=== PATIENT | male | born 1990 | race Caucasian/White ===

== ENCOUNTER 2020-01-31 22:22 | Emergency (ER) | payer OTHER ==
[~2020-01-31] VITALS: Ht 175.3 cm; Wt 88.5 kg
[2020-01-31] MEDS ORDERED: HYDRALAZINE HCL50 MG PO (22:28)
--- OUTSIDE RECORDS SUMMARY | 2020-01-31 23:42 | XMS ---
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 Geremias VISIT COUNT (12 MO.) 1 [facility] [address] [place] [address] ADA [place] Karely TOTAL 9 NOTE: Visits indicate total known visits. ED/UCC VISIT TRACKING (12 MO.) 01/31/2020 22:23 [facility] [place] TYPE: Emergency COMPLAINT: - CHEST TINGLING 01/30/2020 16:57 [facility] [place] TYPE: Emergency DIAGNOSES: . ANXIETY / PANIC ATTACK . Anxiety disorder, unspecified 01/18/2020 10:22 [facility] [place] TYPE: Emergency DIAGNOSES: . anxiety . Chest pain, unspecified 01/17/2020 01:03 [facility] [place] TYPE: Emergency DIAGNOSES: 07807. anxiety 01/09/2020 23:05 [facility] [place] TYPE: Emergency DIAGNOSES: 69913. ermiaseck anxiety 12566. Adjustment disorder, unspecified 80332. Anxiety disorder, unspecified 01/09/2020 01:49 [facility] [place] TYPE: Emergency DIAGNOSES: 59606. ANXIETY 88853. Anxiety disorder, unspecified 01/08/2020 12:[address] [facility] [place] [facility]NN [place] TYPE: Emergency DIAGNOSES: - Panic disorder [episodic paroxysmal anxiety] - Anxiety - Panic Attack 01/03/2020 23:12 [facility] [place] TYPE: Emergency DIAGNOSES: 58375. chaz, damir [address]. Panic disorder [episodic paroxysmal anxiety] 12/25/2019 17:10 [facility] [place] TYPE: Emergency DIAGNOSES: [address]. [place] [address]. Chest pain, unspecified INPATIENT VISIT TRACKING (12 MO.) No inpatient visits to display in this time frame [email or web address]
--- NOTE | 2020-02-01 16:36 | EKG ---
[facility] [address] [place], [place] [address] Signed Normal sinus rhythm Normal ECG No previous ECGs available Confirmed by DIANDRA RODRIGUEZ DO ([id number]) on 02/01/2020 4:36:29 PM Electronically Signed By: DIANDRA RODRIGUEZ DO 02/01/20 1636 PATIENT NAME: JONH YOO Electrocardiogram DATE OF : 88 PHYSICIAN: DIANDRA RODRIGUEZ DO REPORT #: [id number] REPORT IS CONFIDENTIAL AND NOT TO BE RELEASED WITHOUT AUTHORIZATION
== END 2020-01-31 23:27 | disposition home or self-care (01) ==
LOC: ED 22:22
DX: K21.9 Gastro-esophageal reflux disease without esophagitis (principal); R07.89 Other chest pain; F17.200 Nicotine dependence, unspecified, uncomplicated
CPT/HCPCS: 93005; 93010; 99284-25

== ENCOUNTER 2020-02-03 10:01 | Emergency (ER) | payer MEDICAID ==
[~2020-02-03] VITALS: Ht 175.3 cm; Wt 88.5 kg
--- OUTSIDE RECORDS SUMMARY | ~2020-02-03 | XMS | Encounter Summary ---
Demographics + + + | Address | [address] | | | [place] [address] | + + + | Home Phone | | + + + | Preferred Language | Unknown | + + + | Marital Status | Single | + + + | Anabaptism Affiliation | NRP | + + + | Race | White | + + + | Ethnic Group | Not or | + + + Author + + + | Author | [facility] | + + + | Organization | [facility] | + + + | Address | Unknown | + + + | Phone | Unavailable | + + + Support + + +---------+ + | Name | Relationship | Address | Phone | + + +---------+ + | Tahira Lan | ECON | Unknown | | + + +---------+ + Care Team Providers + +------+ + | Care Chalk Cutter Name | Role | Phone | + +------+ + | No Pcp Per Patient | PCP | Unavailable | + +------+ + Encounter Details +--------+ + + + + | Date | Type | Department | Care Team | Description | +--------+ + + + + | 01/16/ | Emergency | [facility] | | | | 2020 | | Medicine [address] | | | | | | [place], [place] | | | | | | [address] | | | +--------+ + + + + Social History + +-------+ +--------+------+ | Tobacco Use | Types | Packs/Day | Years | Date | | | | | Used | | + +-------+ +--------+------+ | Current Every Day | | | | | | Smoker | | | | | + +-------+ +--------+------+ + +---+---+---+ | Smokeless Tobacco: | | | | | Never Used | | | | + +---+---+---+ + + +---------+ + | Alcohol Use | Drinks/Week | oz/Week | Comments | + + +---------+ + | Never | | | | + + +---------+ + + + + + | Alcohol Habits | Answer | Date Recorded | + + + + | How often do you have a drink containing | Never | 12/25/2019 | | alcohol? | | | + + + + | How many drinks containing alcohol do you | Not asked | | | have on a typical day when you are | | | | drinking? | | | + + + + | How often do you have six or more drinks on | Not asked | | | one occasion? | | | + + + + + + + | Sex Assigned at | Date Recorded | | | | + + + | Not on file | | + + + + + + + | Job Start Date | Occupation | Industry | + + + + | Not on file | Not on file | Not on file | + + + + + + + + | Travel History | Travel Start | Travel End | + + + + + + | No recent travel history available. | + + + + + + | COVID-19 Exposure | Response | Date Recorded | + + + + | In the last month, have you been in contact | No / Unsure | 01/17/2020 1:04 AM | | with someone who was confirmed or | | PDT | | suspected to have Coronavirus / COVID-19? | | | + + + + documented as of this encounter Medications at Time of Discharge + + + +---------+ + + | Medication | Sig | Dispensed | Refills | Start | End Date | | | | | | Date | | + + + +---------+ + + | hydrOXYzine 50 mg | Take 1 tablet by | 16 | 0 | 01/09/20 | | | oral tablet | mouth every six | tablet | | 20 | | | | hours as needed for | | | | | | | anxiety. | | | | | + + + +---------+ + + documented as of this encounter Plan of Treatment Not on filedocumented as of this encounter Procedures + +--------+ + + + | Procedure Name | Priori | Date/Time | Associated Diagnosis | Comments | | | ty | | | | + +--------+ + + + | ED INFORMATION | Routin | 01/17/2020 | | Results for this | | EXCHANGE | e | 1:04 AM | | procedure are in the | | | | PDT | | results section. | + +--------+ + + + documented in this encounter Results ED INFORMATION EXCHANGE (01/17/2020 1:04 AM PDT) + + | Specimen | + + | | + + + + + | Narrative | Performed At | + + + | [facility]?NOTIFICATION?01/17/2020 01:03?JONH VAZQUEZ? | [facility] | | Criteria Met 5 Visits In 365 Days Security and Safety | MEDICAL | | No recent Security Events currently on file ED Care Guidelines | TECHNOLOGIES | | There are currently no ED Care Guidelines for this patient. Please | | | check your facility's medical records system. E.D. | | | Visit Count (12 mo.) Facility Visits [facility] | | | Center 1 [facility] 5 Total 6 Note: Visits | | | indicate total known visits. Recent Emergency Department Visit | | | Summary Date Facility [facility] State Type Diagnoses or Chief Complaint | | | Jan 17, 2020 [facility]. [place] Emergency 10,800. | | | anxiety Jan 09, 2020 [facility]. [place] Emergency | | | 10,800. recheck anxiety 18,400. Adjustment disorder, | | | unspecified 18,400. Anxiety disorder, unspecified Jan 08, | | | 2019 [facility]. [place] Emergency 10,800. ANXIETY | | | 18,400. Anxiety disorder, unspecified Jan 08, 2020 [place] | | | [facility]. [place] Emergency Anxiety Panic | | | Attack Panic disorder [episodic paroxysmal anxiety] Jan 02, | | | 2019 [facility]. [place] Emergency 10,800. anxiety, | | | sob 18,400. Panic disorder [episodic paroxysmal anxiety] | | | Dec 25, 2019 [facility]. [place] Emergency 10,800. | | | CP 18,400. Chest pain, unspecified Recent Inpatient | | | Visit Summary No recorded inpatient visits. Care Team Provider | | | Specialty Phone Fax Service Dates [facility] | [facility] Clinic/Center: [facility] ([facility]) ([id number]) | | | [phone] Dec 24, 2019 - Current Tiqets Portal This | | | patient has registered at the [facility] Emergency | | | Department For more information visit: | | | [email or web address] | | | [email or web address] PLEASE NOTE: 1. Any care recommendations and | | | other clinical information are provided as guidelines or for | | | historical purposes only, and providers should exercise their own | | | clinical judgment when providing care. 2. You may only use this | | | information for purposes of treatment, payment or health care | | | operations activities, and subject to the limitations of applicable | | | Collective Policies. 3. You should consult directly with the | | | organization that provided a care guideline or other clinical | | | history with any questions about additional information or accuracy | | | or completeness of information provided. ? 2020 [email or web address] | | | [employer] Dash. - [email or web address] | | + + + + + | Procedure Note | + + | Service Account, Rtf Results Inbound - 01/17/2020 1:06 AM PDT Formatting of this | | note might be different from the original.COLLECT[facility]?NOTIFICATION?01/17/2020 | | 01:03?JONH VAZQUEZ? Met 5 Visits In 365 DaysSecurity and SafetyNo | | recent Security Events currently on fileED Care GuidelinesThere are currently no ED Care | | Guidelines for this patient. Please check your facility's medical records system.E.D. | | Visit Count (12 mo.)Facility Visits [facility] 1 [facility] | | [facility] 5 Total 6 Note: Visits indicate total known visits. Recent Emergency | | Department Visit SummaryDate Facility City State Type Diagnoses or Chief Complaint Srini | | 2019 [facility]. [place] Emergency 10,800. anxiety Jan 09, 2020 | | [facility]. [place] Emergency 10,800. recheck anxiety 18,400. | | Adjustment disorder, unspecified 18,400. Anxiety disorder, unspecified Jan 09, 2020 | | [facility]. [place]. [place] Emergency 10,800. ANXIETY 18,400. Anxiety disorder, | | unspecified Jan 08, 2020 [facility]. [place] Emergency Anxiety | | Panic Attack Panic disorder [episodic paroxysmal anxiety] Jan 03, 2020 [facility] | | [facility]. [place]. [place] Emergency 10,800. anxiety, sob 18,400. Panic disorder | | [episodic paroxysmal anxiety] Dec 25, 2019 [facility]. [place] Emergency | | 10,800. CP 18,400. Chest pain, unspecified Recent Inpatient Visit SummaryNo recorded | | inpatient visits. Care TeamProvider Specialty Phone Fax Service Dates [place], | | [facility] Clinic/Center: [facility] ([facility]) | | Dec 24, 2019 - Current Tiqets PortalThis patient has registered at | | the [facility] Emergency Department For more information visit: | | [email or web address] PLEASE | | NOTE: 1. Any care recommendations and other clinical information are provided as | | guidelines or for historical purposes only, and providers should exercise their own | | clinical judgment when providing care. 2. You may only use this information for | | purposes of treatment, payment or health care operations activities, and subject to the | | limitations of applicable Tiqets Policies. 3. You should consult directly with | | the organization that provided a care guideline or other clinical history with any | | questions about additional information or accuracy or completeness of information | | provided.? 2020 [employer]. - [email or web address] | | 10,800. recheck anxiety | | 18,400. Adjustment disorder, unspecified | | 18,400. Anxiety disorder, unspecified | | | |Jan 09, 2020 [facility]. [place] Emergency | | 10,800. ANXIETY | | 18,400. Anxiety disorder, unspecified | | | |Jan 08, 2020 [facility]. [place] Emergency | | Anxiety | | Panic Attack | | Panic disorder [episodic paroxysmal anxiety] | | | |Jan 03, 2020 [facility]. [place] Emergency | | 10,800. anxiety, sob | | 18,400. Panic disorder [episodic paroxysmal anxiety] | | | |Dec 25, 2019 [facility]. [place] Emergency | | 10,800. CP | | 18,400. Chest pain, unspecified | | | | | | | |Recent Inpatient Visit Summary | |No recorded inpatient visits. | | | |Care Team | |Provider Specialty Phone Fax Service Dates | |[facility] Clinic/Center: [facility] ( [facility]) Dec 24, 2019 - Current | | | |Tiqets Portal | |This patient has registered at the [facility] Emergency Department | |For more information visit: [email or web address] | |PLEASE NOTE: | | 1. Any care recommendations and other clinical information are provided as guidelines or for historical purposes only, and providers should exercise their own clinical judgment whe n providing care. | | 2. You may only use this information for purposes of treatment, payment or health care o perations activities, and subject to the limitations of applicable Tiqets Policies. | | 3. You should consult directly with the organization that provided a care guideline or o ther clinical history with any questions about additional information or accuracy or complet eness of information provided. | | | |? 2020 [employer] Party. - [email or web address] | + + + + + + + | Performing | Address | City/State/Zipcode | Phone Number | | Organization | | | | + + + + + | [facility] | [address] | [place], [place] | [phone] | | TECHNOLOGIES | [address] | [address] | | + + + + + documented in this encounter Visit Diagnoses Not on filedocumented in this encounter"
--- OUTSIDE RECORDS SUMMARY | ~2020-02-03 | XMS | Encounter Summary ---
Demographics + + + | Address | [address] | | | [place] [address] | + + + | Home Phone | | + + + | Preferred Language | Unknown | + + + | Marital Status | Single | + + + | Pentecostalism Affiliation | NRP | + + + | Race | White | + + + | Ethnic Group | Not or | + + + Author + + + | Organization | Unknown | + + + | Address | Unknown | + + + | Phone | Unavailable | + + + Support + + +---------+ + | Name | Relationship | Address | Phone | + + +---------+ + | Tahira Lan | ECON | Unknown | | + + +---------+ + Care Team Providers + +------+ + | Care Denier Control Operator Name | Role | Phone | + +------+ + | No Pcp Per Patient | PCP | Unavailable | + +------+ + Encounter Details +--------+--------+ + + + | Date | Type | Department | Care Team | Description | +--------+--------+ + + + | 01/17/ | Travel | | | | | 2020 | | | | | +--------+--------+ + + + Social History + +-------+ [...] in contact | No / Unsure | 01/18/2020 10:04 AM | | with someone who was confirmed or | | PDT | | suspected to have Coronavirus / COVID-19? | | | + + + + documented as of this encounter Plan of Treatment Not on filedocumented as of this encounter Visit Diagnoses Not on filedocumented in this encounter"
--- OUTSIDE RECORDS SUMMARY | ~2020-02-03 | XMS | Encounter Summary ---
Demographics + + + | Address | [address] | | | [place] [address] | + + + | Home Phone | | + + + | Preferred Language | Unknown | + + + | Marital Status | Single | + + + | Muslim Affiliation | NRP | + + + [...] Team Providers + +------+ + | Care Tour Conductor Name | Role | Phone | + +------+ + | No Pcp Per Patient | PCP | Unavailable | + +------+ + Reason for Visit +---------+ + | Reason | Comments | +---------+ + | Anxiety | | +---------+ + AUTH/CERT +--------+--------+ + + + + | Status | Reason | Specialty | Diagnoses / | Referred By | Referred To | | | | | Procedures | Contact | Contact | +--------+--------+ + + + + | | | | | | | +--------+--------+ + + + + Encounter Details +--------+ + + + + | Date | Type | Department | Care Team | Description | +--------+ + + + + | 01/08/ | Emergency | [facility] | Chema Beck, | | | 2019 - | | Medicine [address] | DO [address] [facility] | | | | | [place], [place] | [facility] | | | 01/09/ | | [address] | [place], [place] | | | 2019 | | | [address] | | | | | | [phone] | | | | | | | | +--------+ + + + [...] in contact | No / Unsure | 01/09/2020 11:14 PM | | with someone who was confirmed or | | PDT | | suspected to have Coronavirus / COVID-19? | | | + + + + documented as of this encounter Last Filed Vital Signs + + + + + | Vital Sign | Reading | Time Taken | Comments | + + + + + | Blood Pressure | 126/64 | 01/10/2020 12:00 AM | | | | | PDT | | + + + + + | Pulse | 79 | 01/09/2020 11:13 PM | | | | | PDT | | + + + + + | Temperature | 36.9 C (98.4 F) | 01/09/2020 11:13 PM | | | | | PDT | | + + + + + | Respiratory Rate | 18 | 01/09/2020 11:13 PM | | | | | PDT | | + + + + + | Oxygen Saturation | 97% | 01/10/2020 12:01 AM | | | | | PDT | | + + + + + | Inhaled Oxygen | - | - | | | Concentration | | | | + + + + + | Weight | 88.5 kg (195 lb) | 01/09/2020 11:13 PM | | | | | PDT | | + + + + + | Height | 175.3 cm (5' 9") | 01/09/2020 11:13 PM | | | | | PDT | | + + + + + | Body Mass Index | 28.8 | 01/09/2020 11:13 PM | | | | | PDT | | + + + + + documented in this encounter Discharge Instructions Instructions Chema Beck DO - 01/10/2020Outpatient Behavioral [facility] Patient Safety Plan Step 1: Warning signs (thoughts, images, mood, situation, behavior) that a crisis may be de velopin. Moments of vulnerability such as eating and sleeping 2. Feeling out of breath 3. Heart racing 4. Heavy head 5. Dry mouth Step 2: Internal coping strategiesThings I can do to take my mind off my problems without c ontacting another person (relaxation technique, physical activity): 1. Grounding techniques (handout provided by [facility]) 2. Attending to nervous system worksheet (provided by [facility]) 3. Leaving the house and going for a ride in the car Step 3: People and social settings that provide distraction: 1. Name: Friends Phone: in phone 2. Name: Friends Phone: in phone 3. Place: Driving in car 4: Place: Step 4: People whom I can ask for help: 1. Name: Friends Phone: in phone 2. Name: Friends Phone: in phone 3. Name: Friends Phone: in phone Step 5: Professional or agencies I can contact during a crisis: 1. Clinical Name: Natalie Bragg in [place] 2. Local Urgent Care Services: Natalie Bragg in [facility] Address: [address] [address] Urgent Care Services 3. Suicide Prevention Lifeline Phone: [phone] ([phone]) Crisis Resources: [facility] Crisis Line: 24/01, Call: [phone] [place] [facility] [address] [address] This is a crisis center and should you be in a mental health crisis or need immediate suppo rt. To access, please call the crisis line at [phone] or go to the [place] [facility] between the hours of 9:00am to 8:30 pm. The Crisis Text Line - Text HOME to 322842 A labor relations worker will text you back and continue to text you. This is a free service. National Suicide Prevention Lifeline: 144.987.2144 [place]: 400.629.8201 Alcohol and Drug Helpline: 556.601.4342 Domestic Violence Resource Center: 493.374.8554 Veterans Crisis Line: 589.272.4635 Press 1 Text: 068692 Problem Gambling Helpline: 575.290.5127 [place] Poison Control Hotline: 144.471.5564 Step 6: Making the environment safe: 1. Taking space from family 2. Keeping schedule The one thing that is most important to me and worth living for is: Family AttachmentsThe following attachments cannot be sent through Care Everywhere.Adjustment Diso rder (Somali)documented in this encounter Medications at Time of Discharge [...] + | ED INFORMATION | Routin | 01/09/2020 | | Results for this | | EXCHANGE | e | 11:00 PM | | procedure are in the | | | | PDT | | results section. | + +--------+ + + + documented in this encounter Results ED INFORMATION EXCHANGE (01/09/2020 11:00 PM PDT) + + | Specimen | + + | | + + + + + | Narrative | Performed At | + + + | [facility]?NOTIFICATION?01/09/2020 22:59?JONH VAZQUEZ? | [facility] | | Criteria Met 5 Visits In 365 Days COVID-19 Pending Lab | MEDICAL | | Results Security and Safety No recent Security Events currently | TECH[employer]OLOGIES | | on file ED Care Guidelines There are currently no ED Care | | | Guidelines for this patient. Please check your facility's medical | | | records system. Flags Pending COVID-19 Lab Result - | | | [place] - A specimen was collected from this patient for | | | COVID-19, results pending / Attributed By: Linda_ / Attributed | | | On: 01/08/2020 E.D. Visit Count (12 mo.) Facility | | | Visits [facility] 1 [facility] | | | [facility] 4 Total 5 Note: Visits indicate total known visits. | | | Recent Emergency Department Visit Summary Date Facility City State | | | Type Diagnoses or Chief Complaint Jan 09, 2020 [facility]. | | | [place]. [place] Emergency 10,800. recheck anxiety Jan 09, 2020 | | | [facility]. [place] Emergency 10,800. ANXIETY | | | 18,400. Anxiety disorder, unspecified Jan 08, 2020 [facility] | | | [place] Emergency Anxiety Panic Attack | | | Panic disorder [episodic paroxysmal anxiety] Jan 03, 2020 | | | [facility]. [place] Emergency 10,800. anxiety, sob | | | 18,400. Panic disorder [episodic paroxysmal anxiety] Dec 24, | | | 2019 [facility]. [place] Emergency 10,800. CP | | | 18,400. Chest pain, unspecified Recent Inpatient Visit | | | Summary No recorded inpatient visits. Care Team Provider | | | Specialty Phone Fax Service Dates [facility] | | CL[facility] Clinic/Center: [facility] ([facility]) ([phone]) | | | [phone] Dec 24, 2019 - Current [employer] Portal This | | | patient has registered at the [facility] Emergency | | | Department For more information visit: | | | [email or web address] | | | [email or web address] PLEASE NOTE: 1. Any care recommendations and [...] or completeness of information provided. ? 2020 [employer] | | | [employer] - www.[employer] | | + + + + + | Procedure Note | + + | Service Account, Rtf Results Inbound - 01/09/2020 11:02 PM PDT Formatting of this | | note might be different from the original.COLLECTIVE?NOTIFICATION?01/09/2020 | | 22:59?JONH VAZQUEZ? Met 5 Visits In 365 Days COVID-19 Pending Lab | | ResultsSecurity and SafetyNo recent Security Events currently on fileED Care | | GuidelinesThere are currently no ED Care Guidelines for this patient. Please check your | | facility's medical records system.Flags Pending COVID-19 Lab Result - [place] - A | | specimen was collected from this patient for COVID-19, results pending / Attributed By: | | [place]_ / Attributed On: 01/08/2020 E.D. Visit Count (12 mo.)Facility Visits | | [facility] 1 [facility] 4 Total 5 Note: | | Visits indicate total known visits. Recent Emergency Department Visit SummaryDate | | Facility City State Type Diagnoses or Chief Complaint Jan 09, 2020 [facility]. | | [place]. [place] Emergency 10,800. recheck anxiety Jan 09, 2020 [facility]. | | [place] Emergency 10,800. ANXIETY 18,400. Anxiety disorder, unspecified Jan 08, 2020 | | [facility]. [place] Emergency Anxiety Panic Attack Panic | | disorder [episodic paroxysmal anxiety] Jan 03, 2020 [facility]. [place] | | Emergency 10,800. anxiety, sob 18,400. Panic disorder [episodic paroxysmal | | anxiety] Dec 25, 2019 [facility]. [place] Emergency 10,800. CP 18,400. | | Chest pain, unspecified Recent Inpatient Visit SummaryNo recorded inpatient visits. | | Care TeamProvider Specialty Phone Fax Service Dates [facility] Clinic[facility]Center: [facility] ([facility]) Dec 23 | | 2019 - Current APERA BAGSThis patient has registered at the [facility] | | Hospital Emergency Department For more information visit: | | [email or web address] PLEASE | | NOTE: 1. Any care [...] to the | | limitations of applicable [employer] Policies. 3. You should consult directly with | | the organization that provided a care guideline or other clinical history with any | | questions about additional information or accuracy or completeness of information | | provided.? 2019 [employer]. - www.[employer] | | 10,800. recheck anxiety | | | |Jan 09, 2020 [facility]. [place] Emergency | | 10,800. ANXIETY | | 18,400. Anxiety disorder, unspecified | | | |Jan 08, 2020 [facility]. [place] Emergency | | Anxiety | | Panic Attack | | Panic disorder [episodic paroxysmal anxiety] | | | |Jan 03, 2020 [facility]. [place] Emergency | | 10,800. anxiety, sob | | 18,400. Panic disorder [episodic paroxysmal anxiety] | | | |Dec 25, 2019 [facility]. [place] Emergency | | 10,800. CP | | 18,400. Chest pain, unspecified | | | | | | | |Recent Inpatient Visit Summary | |No recorded inpatient visits. | | | |Care Team | |Provider Specialty Phone Fax Service Dates | |[facility] Clinic[facility]Center: [facility] ( [facility]) Dec 24, 2019 - Current | | | |[employer] Portal | |This patient has registered at the [facility] Emergency Department | |For more information visit: [email or web address] | |PLEASE NOTE: | | 1. Any care recommendations and other clinical information are provided as guidelines or for historical purposes only, and providers should exercise their own clinical judgment whe n providing care. | | 2. You may only use this information for purposes of treatment, payment or health care o perations activities, and subject to the limitations of applicable [employer] Polic[employer]. | | 3. You should consult directly with the organization that provided a care guideline or o ther clinical history with any questions about additional information or accuracy or complet eness of information provided. | | | |? 2020 [employer]. - www.[employer] | + + + + + + + | Performing | Address | City/State/Zipcode | Phone Number | | Organization | | | | + + + + + | [facility] | [address] | [place], [place] | [phone] | | TECH[employer]OLOGIES | [address] | [address] | | + + + + + documented in this encounter Visit Diagnoses + + | Diagnosis | + + | Adjustment disorder, unspecified type - Primary | + + | Anxiety Anxiety state, unspecified | + + documented in this encounter
--- OUTSIDE RECORDS SUMMARY | ~2020-02-03 | XMS | Encounter Summary ---
Demographics + + + | Address | [address] | | | [place] [address] | + + + | Home Phone | | + + + | Preferred Language | Unknown | + + + | Marital Status | Single | + + + | Church Affiliation | NRP | + + + [...] Team Providers + +------+ + | Care Clerk Operator Name | Role | Phone | [...] [address] | | | | | | [place], [place] | | | | | | [address] | | | +--------+ + + + [...] | Visit Count (12 mo.) Facility Visits [facility] | | | Center 1 [facility] 5 Total 6 Note: Visits | | | indicate total known visits. Recent Emergency Department Visit | | | Summary Date Facility [facility] State Type Diagnoses or Chief Complaint | | | Jan 17, 2020 [facility]. [place] Emergency 10,800. | | | anxiety Jan 09, 2020 [facility]. [place] Emergency | | | 10,800. recheck anxiety 18,400. Adjustment disorder, | | | unspecified 18,400. Anxiety disorder, unspecified Jan 08, | | | 2019 [facility]. [place] Emergency 10,800. ANXIETY | | | 18,400. Anxiety disorder, unspecified Jan 08, 2020 [place] | | | [facility]. [place] Emergency Anxiety Panic | | | Attack Panic disorder [episodic paroxysmal anxiety] Jan 02, | | | 2019 [facility]. [place] Emergency 10,800. anxiety, | | | sob 18,400. Panic disorder [episodic paroxysmal anxiety] | | | Dec 25, 2019 [facility]. [place] Emergency 10,800. | | | CP 18,400. Chest pain, unspecified Recent Inpatient | | | Visit Summary No recorded inpatient visits. Care Team Provider | | | Specialty Phone Fax Service Dates [facility] | | [facility] Clinic/Center: [facility] ([facility]) (630) | | | [phone] Dec 24, 2019 - Current [employer] Portal This | | | patient has registered at the [facility] Emergency | | | Department For more information visit: | | | [email or web address] | | | [email or web address] 2 PLEASE NOTE: 1. Any care recommendations [...] or completeness of information provided. ? 2020 [employer] | | | [employer]. - www.[employer] | | + + + + + [...] | | Visit Count (12 mo.)Facility Visits [facility] 1 [facility] | | [facility] 5 Total 6 Note: Visits indicate total known visits. Recent Emergency | | Department Visit SummaryDate Facility City State Type Diagnoses or Chief Complaint Srini | | 2019 [facility]. [place]. [place] Emergency 10,800. anxiety Jan 09, 2020 | | [facility]. [place] Emergency 10,800. recheck anxiety 18,400. | | Adjustment disorder, unspecified 18,400. Anxiety disorder, unspecified Jan 09, 2020 | | [facility]. [place]. [place] Emergency 10,800. ANXIETY 18,400. Anxiety disorder, | | unspecified Jan 08, 2020 [facility]. [place] Emergency Anxiety | | Panic Attack Panic disorder [episodic paroxysmal anxiety] Jan 03, 2020 [facility] | | [facility]. [place]. [place] Emergency 10,800. anxiety, sob 18,400. Panic disorder | | [episodic paroxysmal anxiety] Dec 25, 2019 [facility]. [place] Emergency | | 10,800. CP 18,400. Chest pain, unspecified Recent Inpatient Visit SummaryNo recorded | | inpatient visits. Care TeamProvider Specialty Phone Fax Service Dates [place], | | [facility] Clinic/Center: [facility] ([facility]) | | Dec 24, 2019 - Current [employer] PortalThis patient has registered at | | the [facility] Emergency Department For more information visit: | | [email or web address] PLEASE | | NOTE: 1. Any care [...] to the | | limitations of applicable [employer] Policies. 3. You should consult directly with | | the organization that provided a care guideline or other clinical history with any | | questions about additional information or accuracy or completeness of information | | provided.? 2020 [employer]. - www.[email or web address] | | 10,800. recheck anxiety | | 18,400. Adjustment disorder, unspecified | | 18,400. Anxiety disorder, unspecified | | | |Jan 09, 2020 [facility]. [place] Emergency | | 10,800. ANXIETY | | 18,400. Anxiety disorder, unspecified | | | |Jan 08, 2020 [facility]. [place] Emergency | | Anxiety | | Panic Attack | | Panic disorder [episodic paroxysmal anxiety] | | | |Jan 03, 2020 [facility]. [place] Emergency | | 10,800. anxiety, sob | | 18,400. Panic disorder [episodic paroxysmal anxiety] | | | |Dec 25, 2019 [facility]. [place] Emergency | | 10,800. CP | | 18,400. Chest pain, unspecified | | | | | | | |Recent Inpatient Visit Summary | |No recorded inpatient visits. | | | |Care Team | |Provider Specialty Phone Fax Service Dates | |[facility] Clinic/Center: [facility] ( [facility]) Dec 24, 2019 - Current | | | |[employer] Portal | |This patient has registered at the [facility] Emergency Department | |For more information visit: [email or web address] | |PLEASE NOTE: | | 1. Any care recommendations and other clinical information are provided as guidelines or for historical purposes only, and providers should exercise their own clinical judgment whe n providing care. | | 2. You may only use this information for purposes of treatment, payment or health care o perations activities, and subject to the limitations of applicable [employer] Policies. | | 3. You should consult directly with the organization that provided a care guideline or o ther clinical history with any questions about additional information or accuracy or complet eness of information provided. | | | |? 2020 [employer]. - www.[email or web address] | + + + + + + + | Performing | Address | City/State/Zipcode | Phone Number | | Organization | | | | + + + + + | [facility] | [address] | [place], [place] | [phone] | | TE[employer] | [address] | [address] | | + + + + + documented in this encounter Visit Diagnoses Not on filedocumented in this encounter"
--- OUTSIDE RECORDS SUMMARY | ~2020-02-03 | XMS | Encounter Summary ---
Demographics + + + | Address | [address] | | | [place] [address] | + + + | Home Phone | | + + + | Preferred Language | Unknown | + + + | Marital Status | Single | + + + | Catholic Affiliation | NRP | + + + [...] Team Providers + +------+ + | Care Teachers' Assistant Name | Role | Phone | + [...] | Chema Beck, | | | 2019 | | Medicine [address] | DO [address] | | | | | [place], [place] | [facility] | | | | | [id number] | [place], [place] | | | | | | [address] | | | | | | [phone] | | | | | | | [...] contact | No / Unsure | 01/09/2020 12:41 AM | | with someone who was confirmed or | | PDT | | suspected to have Coronavirus / COVID-19? | | | + + + + documented as of this encounter Last Filed Vital Signs + + + + + | Vital Sign | Reading | Time Taken | Comments | + + + + + | Blood Pressure | 108/65 | 01/09/2020 3:20 AM | | | | | PDT | | + + + + + | Pulse | 66 | 01/09/2020 12:52 AM | | | | | PDT | | + + + + + | Temperature | 37.2 C (99 F) | 01/09/2020 12:52 AM | | | | | PDT | | + + + + + | Respiratory Rate | 18 | 01/09/2020 3:20 AM | | | | | PDT | | + + + + + | Oxygen Saturation | 98% | 01/09/2020 3:20 AM | | | | | PDT | | + + + + + | Inhaled Oxygen | - | - | | | Concentration | | | | + + + + + | Weight | 88.5 kg (195 lb) | 01/09/2020 12:52 AM | | | | | PDT | | + + + + + | Height | - | - | | + + + + + | Body Mass Index | 28.8 | 01/03/2020 10:58 PM | | | | | PDT | | + + + + + documented in this encounter Discharge Instructions Instructions Chema Beck DO - 01/09/2020[facility] Health Follow up Appointment: Tuesday, Tuesday, or Tuesday at 1100 (follow up within 7 days) [place] [address] [place], [place] [address] [facility] Crisis Line: 24/01, Call: [phone] National Suicide Prevention Lifeline: 237.778.2055 Espaol: [phone] [facility] [place] [address] [facility] [address], [place] [address] This is a crisis center and should you be in a mental health crisis or need immediate suppo rt. To access, please call the crisis line at [phone] or go to the [facility] between the hours of 9:00am to 8:30 pm. AttachmentsThe following attachments cannot be sent through Care Everywhere.Generalized Anx iety Disorder: General Info (Lao)documented in this encounter Medications at Time of [...] this | | EXCHANGE | e | 12:41 AM | | procedure are in the | | | | PDT | | results section. | + +--------+ + + + documented in this encounter Results ED INFORMATION EXCHANGE (01/09/2020 12:41 AM PDT) + + | Specimen | + + | | + + + + + | Narrative | Performed At | + + + | COLLECTIVE?NOTIFICATION?01/09/2020 00:41?JONH VAZQUEZ? | COLLECTIVE | | Criteria Met COVID-19 Pending Lab Results Security and | MEDICAL | | Safety No recent Security Events currently on file ED Care | TECHNOLOGIES | | Guidelines There are currently no ED Care Guidelines for this | | | patient. Please check your facility's medical records system. | | | Flags Pending COVID-19 Lab Result - [place] - A specimen was | | | collected from this patient for COVID-19, results pending / | | | Attributed By: Linda_ / Attributed On: 01/08/2020 | | | E.D. Visit Count (12 mo.) Facility Visits [facility] | | | Medical Center 1 [facility] 3 Total 4 Note: | | | Visits indicate total known visits. Recent Emergency Department | | | Visit Summary Date Facility City State Type Diagnoses or Chief | | | Complaint Jan 09, 2020 [facility]. [place] Emergency | | | 10,800. [facility]XIETY [facility] | | [place] Emergency Anxiety Panic Attack Panic disorder | | | [episodic paroxysmal anxiety] Jan 03, 2020 [facility]. | | | [place]. [place] Emergency 10,800. anxiety, sob 18,400. Panic | | | disorder [episodic paroxysmal anxiety] Dec 25, 2019 [facility] | | | [facility]. [place]. [place] Emergency 10,800. CP 18,400. Chest | | | pain, unspecified Recent Inpatient Visit Summary No | | | recorded inpatient visits. Care Team Provider Specialty Phone | | | Fax Service Dates [facility] | | | Clinic/Center: [facility] ([facility]) ([phone]) | | | [phone] Dec 24, 2019 - Current [employer] Portal This | | | patient has registered at the [facility] Emergency | | | Department For more information visit: | | | [email or web address] | | | [id number] PLEASE NOTE: 1. Any care recommendations and [...] | or completeness of information provided. ? 2019 [employer] | | | [employer] - [email or web address] | | + + + + + | Procedure Note | + + | Service Account, Rtf Results Inbound - 01/09/2020 12:42 AM PDT Formatting of this | | note might be different from the original.COLLECTIVE?NOTIFICATION?01/09/2020 | | 00:41?JONH VAZQUEZ? Met COVID-19 Pending Lab ResultsSecurity and | | SafetyNo recent Security Events currently on fileED Care GuidelinesThere are currently | | no ED Care Guidelines for this patient. Please check your facility's medical records | | system.Flags Pending COVID-19 Lab Result - [place] - A specimen was collected from | | this patient for COVID-19, results pending / Attributed By: Linda_ / Attributed On: | | 01/08/2020 E.D. Visit Count (12 mo.)Facility Visits [facility] | | Center 1 [facility] 3 Total 4 Note: Visits indicate total known visits. | | Recent Emergency Department Visit SummaryDate Facility City State Type Diagnoses or | | Chief Complaint Jan 09, 2020 [facility]. [place] Emergency 10,800. ANXIETY | | Jan 08, 2020 [facility]. [place] Emergency Anxiety Panic Attack | | Panic disorder [episodic paroxysmal anxiety] Jan 03, 2020 [facility]. | | [place] Emergency 10,800. anxiety, sob 18,400. Panic disorder [episodic paroxysmal | | anxiety] Dec 25, 2019 [facility]. [place] Emergency 10,800. CP 18,400. | | Chest pain, unspecified Recent Inpatient Visit SummaryNo recorded inpatient visits. | | Care TeamProvider Specialty Phone Fax Service Dates [facility] | [facility] Clinic/Center: [facility] ([facility]) Dec 23, | | 2019 - Current [employer] [facility] patient has registered at the [facility] | | Hospital Emergency Department For more information visit: | | [email or web address] PLEASE | | NOTE: 1. Any care [...] to the | | limitations of applicable Collective Policies. 3. You should consult directly with | | the organization that provided a care guideline or other clinical history with any | | questions about additional information or accuracy or completeness of information | | provided.? 2019 [employer]. - [email or web address] | |Jan 09, 2020 [facility]. [place] Emergency | | 10,800. ANXIETY | | | |Jan 08, 2020 [facility]. [place] Emergency | | Anxiety | | Panic Attack | | Panic disorder [episodic paroxysmal anxiety] | | | |Jan 03, 2020 [facility]. [place] Emergency | | 10,800. anxiety, sob | | 18,400. Panic disorder [episodic paroxysmal anxiety] | | | |Dec 25, 2019 [facility]. [place] Emergency | | 10,800. CP | | 18,400. Chest pain, unspecified | | | | | | | |Recent Inpatient Visit Summary | |No recorded inpatient visits. | | | |Care Team | |Provider Specialty Phone Fax Service Dates | |[facility] Clinic/Center: [facility] ( [facility]) Dec 24, 2019 - Current | | | |[employer] Portal | |This patient has registered at the [facility] Emergency Department | |For more information visit: [email or web address] | |PLEASE NOTE: | | 1. Any care recommendations and other clinical information are provided as guidelines or for historical purposes only, and providers should exercise their own clinical judgment whe n providing care. | | 2. You may only use this information for purposes of treatment, payment or health care o perations activities, and subject to the limitations of applicable [employer] Policies. | | 3. You should consult directly with the organization that provided a care guideline or o ther clinical history with any questions about additional information or accuracy or complet eness of information provided. | | | |? 2020 [employer]. - [email or web address] | + + + + + + + | Performing | Address | City/State/Zipcode | Phone Number | | Organization | | | | + + + + + | [facility] [facility] | [address] | [place], [place] | [phone] | | TECH[employer]OLOG[employer] | [address] | [address] | | + + + + + documented in this encounter Visit Diagnoses + + | Diagnosis | + + | Anxiety - Primary Anxiety state, unspecified | + + documented in this encounter Administered Medications + +--------+ +--------+------+------+ | Medication Order | MAR | Action | Dose | Rate | Site | | | Action | Date | | | | + +--------+ +--------+------+------+ | gabapentin (NEURONTIN) capsule | Given | 01/09/20 | 300 mg | | | | 300 mg 300 mg, oral, ONCE, 1 | | 20 3:18 | | | | | dose, 01/09/20 at 0315 | | AM PDT | | | | + +--------+ +--------+------+------+ +---+---+ | | | +---+---+ + +-------+ +-------+---+---+ | hydrOXYzine pamoate (VISTARIL) | Given | 01/09/20 | 50 mg | | | | capsule 50 mg 50 mg, oral, ONCE, | | 20 3:18 | | | | | 1 dose, 01/09/20 at 0315 | | AM PDT | | | | + +-------+ +-------+---+---+ +---+---+ | | | +---+---+ documented in this encounter"
--- OUTSIDE RECORDS SUMMARY | ~2020-02-03 | XMS | Encounter Summary ---
Demographics + + + | Address | [address] | | | [place] [address] | + + + | Home Phone | | + + + | Preferred Language | Unknown | + + + | Marital Status | Single | + + + | Orthodox Affiliation | NRP | + + + [...] Team Providers + +------+ + | Care Taxonomy Teacher Name | Role | Phone | + +------+ + | Unknown | PCP | Unavailable | + +------+ [...] | +--------+ + + + + | 01/29/ | Emergency | [facility] | Mima Gibson | | | 2019 | | Medicine [address] | MD [place] [address] [facility] | | | | | [place], [place] | [facility] | | | | | [id number] | [place], [place] | | | | | | [address] | | | | | | [phone] | | | | | | | [...] | | | + +---+---+---+ + + | Tobacco Cessation: Ready to Quit: Yes | + + + + +---------+ + | Alcohol Use [...] in contact | No / Unsure | 01/30/2020 4:51 PM | | with someone who was confirmed or | | PDT | | suspected to have Coronavirus / COVID-19? | | | + + + + documented as of this encounter Last Filed Vital Signs + + + + + | Vital Sign | Reading | Time Taken | Comments | + + + + + | Blood Pressure | 153/81 | 01/30/2020 4:58 PM | | | | | PDT | | + + + + + | Pulse | 77 | 01/30/2020 4:58 PM | | | | | PDT | | + + + + + | Temperature | 36.6 C (97.9 F) | 01/30/2020 4:58 PM | | | | | PDT | | + + + + + | Respiratory Rate | 20 | 01/30/2020 4:58 PM | | | | | PDT | | + + + + + | Oxygen Saturation | 95% | 01/30/2020 4:58 PM | | | | | PDT | | + + + + + | Inhaled Oxygen | - | - | | | Concentration | | | | + + + + + | Weight | 94.1 kg (207 lb 7.3 | 01/30/2020 4:58 PM | | | | oz) | PDT | | + + + + + | Height | 175.3 cm (5' 9") | 01/30/2020 4:58 PM | | | | | PDT | | + + + + + | Body Mass Index | 30.64 | 01/30/2020 4:58 PM | | | | | PDT | | + + + + + documented in this encounter Discharge Instructions Instructions Mima Gibson MD - 01/30/2020Please continue your daily buspirone. You are doctor has written instructions for you to take this once a day in the morning and you c an take it again later in the day if you are feeling anxious. If you have a panic attack, t chandana your hydroxyzine. Call your primary doctor for close follow-up. Return to the emergenc y department for chest pain, shortness of breath, cough, fever, vomiting, any new or worse s ymptoms or for any other concerns. AttachmentsThe following attachments cannot be sent through Care Everywhere.Generalized Anx iety Disorder: General Info (Portuguese)Panic Attacks (Portuguese)documented in this encounter Medications at Time of [...] + | ED INFORMATION | Routin | 01/30/2020 | | Results for this | | EXCHANGE | e | 4:51 PM | | procedure are in the | | | | PDT | | results section. | + +--------+ + + + documented in this encounter Results ED INFORMATION EXCHANGE (01/30/2020 4:51 PM PDT) + + | Specimen | + + | | + + + + + | Narrative | Performed At | + + + | COLLECTIVE?NOTIFICATION?01/30/2020 16:51?JONH VAZQUEZ?MRN: | COLLECTIVE | | [id number] Criteria Met 5 Visits In 365 Days Security and | MEDICAL | | Safety No recent Security Events currently on file ED Care | TECHNOLOGIES | | Guidelines There are currently no ED Care Guidelines for this | | | patient. Please check your facility's medical records system. | | | E.D. Visit Count (12 mo.) Facility Visits [facility] | | | [facility] 1 [facility] 7 Total 8 | | | Note: Visits indicate total known visits. Recent Emergency | | | Department Visit Summary Date Facility City State Type Diagnoses or | | | Chief Complaint Jan 30, 2020 [facility]. [place] | | | Emergency 10,800. ANXIETY / PANIC ATTACK Jan 18, 2020 | | | [facility]. [place] Emergency 10,800. anxiety | | | 18,400. Chest pain, unspecified Jan 17, 2020 [facility]. | | | [place]. [place] Emergency 10,800. anxiety Jan 09, [facility] | | | Community H. [place]. [place] Emergency 10,800. recheck anxiety | | | 18,400. Adjustment disorder, unspecified 18,400. Anxiety | | | disorder, unspecified Jan 09, 2020 [facility]. [place]. [place] | | | Emergency 10,800. ANXIETY 18,400. Anxiety disorder, | | | unspecified Jan 08, 2020 [facility]. [place] | | | Emergency Anxiety Panic Attack Panic disorder | | | [episodic paroxysmal anxiety] Jan 03, 2020 [facility]. | | | [place]. [place] Emergency 10,800. anxiety, sob 18,400. Panic | | | disorder [episodic paroxysmal anxiety] Dec 25, 2019 [facility] | | | Community H. [place]. [place] Emergency 10,800. CP 18,400. Chest | | | pain, unspecified Recent Inpatient Visit Summary No | | | recorded inpatient visits. Care Team Provider Specialty Phone | | | [facility]ates [facility] | | | Clinic/Center: [facility] ([facility]) (850) | | | [phone] Dec 24, 2019 - Current [employer] Portal This | | | patient has registered at the [facility] Emergency | | | Department For more information visit: | | | [email or web address] | | | [id number] PLEASE NOTE: 1. Any care recommendations and [...] or completeness of information provided. ? 2020 [employer] | | | [employer] - [email or web address] | | + + + + + | Procedure Note | + + | Service Account, Rtf Results Inbound - 01/30/2020 4:52 PM PDT Formatting of this | | note might be different from the original.COLLECTIVE?NOTIFICATION?01/30/2020 | | 16:51?JONH VAZQUEZ? Met 5 Visits In 365 DaysSecurity and | | SafetyNo recent Security Events currently on fileED Care GuidelinesThere are currently | | no ED Care Guidelines for this patient. Please check your facility's medical records | | system.E.D. Visit Count (12 mo.)Facility Visits [facility] 1 | | [facility] 7 Total 8 Note: Visits indicate total known visits. Recent | | Emergency Department Visit SummaryDate Facility City State Type Diagnoses or Chief | | Complaint Jan 30, 2020 [facility]. [place] Emergency 10,800. ANXIETY / | | PANIC ATTACK Jan 18, 2020 [facility]. [place] Emergency 10,800. anxiety | | 18,400. Chest pain, unspecified Jan 17, 2020 [facility]. [place] Emergency | | 10,800. anxiety Jan 09, 2020 [facility]. [place] Emergency 10,800. | | recheck anxiety 18,400. Adjustment disorder, unspecified 18,400. Anxiety disorder, | | unspecified Jan 09, 2020 [facility]. [place] Emergency 10,800. ANXIETY | | 18,400. Anxiety disorder, unspecified Jan 08, 2020 [facility]. | | [place] Emergency Anxiety Panic Attack Panic disorder [episodic paroxysmal anxiety] | | Jan 03, 2020 [facility]. [place] Emergency 10,800. anxiety, sob 18,400. | | Panic disorder [episodic paroxysmal anxiety] Dec 25, 2019 [facility]. | | [place] Emergency 10,800. CP 18,400. Chest pain, unspecified Recent Inpatient Visit | | SummaryNo recorded inpatient visits. Care TeamProvider Specialty Phone Fax Service Dates | | [facility] Clinic[facility]Center: [facility] | | Center ([facility]) Dec 24, 2019 - Current [employer] PortalThis patient has | | registered at the [facility] Emergency Department For more information | | visit: [email or web address] | | PLEASE NOTE: 1. Any care recommendations and other clinical information are provided | | as guidelines or for historical purposes only, [...] completeness of information | | provided.? 2020 [employer] - [email or web address] | | | |Jan 17, 2020 [facility]. [place]. [place] Emergency | | 10,800. anxiety | | | |Jan 09, 2020 [facility]. [place]. [place] Emergency | | 10,800. recheck anxiety | | 18,400. Adjustment disorder, unspecified | | 18,400. Anxiety disorder, unspecified | | | |Jan 09, 2020 [facility]. [place]. [place] Emergency | | 10,800. ANXIETY | | 18,400. Anxiety disorder, unspecified | | | |Jan 08, 2020 [facility]. [place] Emergency | | Anxiety | | Panic Attack | | Panic disorder [episodic paroxysmal anxiety] | | | |Jan 03, 2020 [facility]. [place]. [place] Emergency | | 10,800. anxiety, sob | | 18,400. Panic disorder [episodic paroxysmal anxiety] | | | |Dec 25, 2019 [facility]. [place] Emergency | | 10,800. CP | | 18,400. Chest pain, unspecified | | | | | | | |Recent Inpatient Visit Summary | |No recorded inpatient visits. | | | |Care Team | |Provider Specialty Phone Fax Service Dates | |[facility] Clinic/Center: [facility] ( [facility]) Dec 24, 2019 - Current | | | |Collect[employer] Portal | |This patient has registered at the [facility] Emergency Department | |For more information visit: [email or web address] | |PLEASE NOTE: | | 1. Any [...] information provided. | | | |? 2020 [employer]. - [email or web address] | + + + + + + + | Performing | Address | City/State/Zipcode | Phone Number | | Organization | | | | + + + + + | [facility] | [address] | [place], [place] | [phone] | | [employer] | [address] | [address] | | + + + + + documented in this encounter Visit Diagnoses + + | Diagnosis | + + | Anxiety - Primary Anxiety state, unspecified | + + documented in this encounter
--- OUTSIDE RECORDS SUMMARY | ~2020-02-03 | XMS | Encounter Summary ---
Demographics + + + | Address | [address] | | | [place] [address] | + + + | Home Phone [...] Team Providers + +------+ + | Care Entertainment Manager Name | Role | Phone | + +------+ + | No Pcp Per Patient | PCP | Unavailable | + +------+ + Encounter Details +--------+--------+ + + + | Date | Type | Department | Care Team | Description | +--------+--------+ + + + | 01/16/ | Travel | | | | | [...]
--- OUTSIDE RECORDS SUMMARY | ~2020-02-03 | XMS | Encounter Summary ---
Demographics + + + | Address | [address] | | | [place] [address] | + + + | Home Phone | | + + + | Preferred Language | Unknown | + + + | Marital Status | Single | + + + | Jew Affiliation | NRP | + + + [...] Team Providers + +------+ + | Care Lean Manufacturing Leader Name | Role | Phone | + +------+ + | Unknown | PCP | Unavailable | + +------+ + Encounter Details +--------+--------+ + + + | Date | Type | Department | Care Team | Description | +--------+--------+ + + + | 01/29/ | Travel | | | | | [...]
--- OUTSIDE RECORDS SUMMARY | ~2020-02-03 | XMS | Encounter Summary ---
Demographics + + + | Address | [address] | | | [place] [address] | + + + | Home Phone | | + + + | Preferred Language | Unknown | + + + | Marital Status | Single | + + + | Christian Affiliation | NRP | + + + [...] Team Providers + +------+ + | Care Underground Foreman Name | Role | Phone | + +------+ + | No Pcp Per Patient | PCP | Unavailable | + +------+ + Reason for Visit + + + | Reason | Comments | + + + | Chest pain | | + + + AUTH/CERT +--------+--------+ + + + + [...] | +--------+ + + + + | 01/17/ | Emergency | [facility] | [place], | | | 2019 | | Medicine [address] | Fredis Workman DO [address] | | | | | [place], [place] | [address] [facility] | | | | | [id number] | [address] [place], [place] | | | | | | [address] | | | | | | [phone] | | | | | | | [...] + + + | Blood Pressure | 131/74 | 01/18/2020 10:08 AM | | | | | PDT | | + + + + + | Pulse | 84 | 01/18/2020 10:08 AM | | | | | PDT | | + + + + + | Temperature | 37 C (98.6 F) | 01/18/2020 10:08 AM | | | | | PDT | | + + + + + | Respiratory Rate | 16 | 01/18/2020 10:08 AM | | | | | PDT | | + + + + + | Oxygen Saturation | 97% | 01/18/2020 10:08 AM | | | | | PDT | | + + + + + | Inhaled Oxygen | - | - | | | Concentration | | | | + + + + + | Weight | 86.2 kg (190 lb) | 01/18/2020 10:08 AM | | | | | PDT | | + + + + + | Height | 175.3 cm (5' 9") | 01/18/2020 10:08 AM | | | | | PDT | | + + + + + | Body Mass Index | 28.06 | 01/18/2020 10:08 AM | | | | | PDT | | + + + + + documented in this encounter Discharge Instructions Instructions Fredis Mccray, - 01/18/2020Please call your doctor or return to the emergency department if your symptoms get worse, change or persist. AttachmentsThe following attachments cannot be sent through Care Everywhere.Chest Pain ([facility])documented in this encounter Medications at Time of [...] | + +--------+ + + + | CBC AND AUTO DIFF | Urgent | 01/18/2020 | | Results for this | | | | 10:52 AM | | procedure are in the | | | | PDT | | results section. | + +--------+ + + + | CBC, WITH | Urgent | 01/18/2020 | | Results for this | | DIFFERENTIAL | | 10:52 AM | | procedure are in the | | | | PDT | | results section. | + +--------+ + + + | TROPONIN I, PLASMA | Urgent | 01/18/2020 | | Results for this | | | | 10:52 AM | | procedure are in the | | | | PDT | | results section. | + +--------+ + + + | BASIC METABOLIC SET | Urgent | 01/18/2020 | | Results for this | | (NA, K, CL, TCO2, | | 10:52 AM | | procedure are in the | | BUN, CR, GLU, CA) | | PDT | | results section. | + +--------+ + + + | ED INFORMATION | Routin | 01/18/2020 | | Results for this | | EXCHANGE | e | 10:04 AM | | procedure are in the | | | | PDT | | results section. | + +--------+ + + + | EKG, ADULT - [facility] | Urgent | 01/18/2020 | | Results for this | | ONLY | | 10:03 AM | | procedure are in the | | | | PDT | | results section. | + +--------+ + + + documented in this encounter Results CBC AND AUTO DIFF (01/18/2020 10:52 AM PDT) + + + + + + | Component | Value | Ref Range | Performed | Pathologist | | | | | At | Signature | + + + + + + | WHITE CELL | 7.40 | 3.50 - 10.80 | [facility] | | | COUNT | | K/cu mm | [facility] | | + + + + + + | RED CELL | 5.10 | 4.50 - 6.00 | [facility] | | | COUNT | | M/cu mm | [facility] | | + + + + + + | HEMOGLOBIN | 15.6 | 13.5 - 17.5 | [facility] | | | | | g/dL | [facility] | | + + + + + + | HEMATOCRIT | 45.4 | 41.0 - 53.0 % | [facility] | | | | | | [facility] | | + + + + + + | MCV | 89.2 | 80.0 - 100.0 fL | [facility] | | | | | | [facility] | | + + + + + + | MCH | 30.6 | 27.0 - 34.0 pg | [facility] | | | | | | [facility] | | + + + + + + | MCHC | 34.3 | 33.0 - 35.5 | [facility] | | | | | g/dL | [facility] | | + + + + + + | RDW | 12.8 | 11.5 - 14.5 % | [facility] | | | | | | [facility] | | + + + + + + | PLATELET | 256 | 150 - 400 K/cu | [facility] | | | COUNT | | mm | [facility] | | + + + + + + | MPV | 7.2 (L) | 7.4 - 10.4 fL | [facility] | | | | | | [facility] | | + + + + + + | NEUTROPHIL | 68.4 | 50.0 - 70.0 % | [facility] | | | % | | | [facility] | | + + + + + + | LYMPHOCYTE | 16.9 (L) | 18.0 - 42.0 % | [facility] | | | % | | | [facility] | | + + + + + + | MONOCYTE % | 10.0 (H) | 3.5 - 9.0 % | [facility] | | | | | | [facility] | | + + + + + + | EOS % | 4.1 (H) | 0.0 - 3.0 % | [facility] | | | | | | [facility] | | + + + + + + | BASO % | 0.6 | 0.0 - 2.0 % | [facility] | | | | | | [facility] | | + + + + + + | NEUTROPHIL | 5.00 | 1.80 - 7.70 | [facility] | | | # | | K/cu mm | [facility] | | + + + + + + | LYMPHOCYTE | 1.20 | 1.00 - 4.80 | [facility] | | | # | | K/cu mm | [facility] | | + + + + + + | MONOCYTE # | 0.70 | 0.10 - 0.90 | [facility] | | | | | K/cu mm | [facility] | | + + + + + + | EOS # | 0.30 | 0.00 - 0.50 | [facility] | | | | | K/cu mm | [facility] | | + + + + + + | BASO # | 0.00 | 0.00 - 0.10 | [facility] | | | | | K/cu mm | [facility] | | + + + + + + + + | Specimen | + + | Blood - Blood | | (substance) | + + + + + + + | Performing | Address | City/State/Zipcode | Phone Number | | Organization | | | | + + + + + | [facility] | [address] | [place], [place] | | | LAB | | [address] | | + + + + + BASIC METABOLIC SET (NA, K, CL, TCO2, BUN, CR, GLU, CA) (01/18/2020 10:52 AM PDT) + +-------+ + + + | Component | Value | Ref Range | Performed | Pathologist | | | | | At | Signature | + +-------+ + + + | GLUCOSE, | 90 | 70 - 99 mg/dL | [facility] | | | PLASMA | | | [facility] | | | (LAB) | | | | | + +-------+ + + + | BUN, PLASMA | 14 | 6 - 20 mg/dL | [facility] | | | (LAB) | | | [facility] | | + +-------+ + + + | CREATININE | 1.06 | 0.60 - 1.30 | [facility] | | | PLASMA | | mg/dL | [facility] | | | (LAB) | | | | | + +-------+ + + + | EGFR | >60 | >60 mL/min | [facility] | | | - | | | [facility] | | | [place] | | | | | + +-------+ + + + | EGFR NON | >60 | >60 mL/min | [facility] | | | -SOLITARIO | | | [facility] | | | RICAN | | | | | + +-------+ + + + | SODIUM, | 141 | 136 - 145 | [facility] | | | PLASMA | | mmol/L | [facility] | | | (LAB) | | | | | + +-------+ + + + | POTASSIUM, | 3.9 | 3.4 - 5.0 | [facility] | | | PLASMA | | mmol/L | [facility] | | | (LAB) | | | | | + +-------+ + + + | CHLORIDE, | 105 | 97 - 108 mmol/L | [facility] | | | PLASMA | | | [facility] | | | (LAB) | | | | | + +-------+ + + + | TOTAL CO2, | 32 | 21 - 32 mmol/L | [facility] | | | PLASMA | | | [facility] | | | (LAB) | | | | | + +-------+ + + + | CALCIUM, | 9.2 | 8.6 - 10.2 | [facility] | | | PLASMA | | mg/dL | [facility] | | | (LAB) | | | | | + +-------+ + + + | ANION GAP | 4 | 4 - 11 mmol/L | [facility] | | | | | | [facility] | | + +-------+ + + + | BUN/CREATIN | 13 | 8 - 25 | [facility] | | | INE RATIO | | | [facility] | | + +-------+ + + + + + | Specimen | + + | Blood - Blood | | (substance) | + + + + + | Narrative | Performed At | + + + | GFR is estimated using the MDRD equation recommended by the National | | | Kidney Disease Education Program. Estimated GFR Interpretive | [facility] | | Information: <60 mL/min/1.73 sq m Chronic Kidney | [facility] | | Disease <15 mL/min/1.73 sq m Kidney Failure | | | Estimated GFR greater than 60 mL/min/1.73 sq m is of limited clinical | | | value. The MDRD equation is not valid in the following situations: | | | - Patients under 18 years of age - Severe malnutrition or obesity | | | - Vegetarian diet - Rapidly changing kidney function - Amputees, | | | paraplegics, or other muscle-wasting diseases | | + + + + + + + + | Performing | Address | City/State/Zipcode | Phone Number | | Organization | | | | + + + + + | [facility] | [address] | [place], [place] | | | LAB | | [address] | | + + + + + TROPONIN I, PLASMA (01/18/2020 10:52 AM PDT) + +-------+ + + + | Component | Value | Ref Range | Performed | Pathologist | | | | | At | Signature | + +-------+ + + + | TROPONIN I | <0.01 | 0.00 - 0.03 | [facility] | | | | | ng/mL | [facility] | | + +-------+ + + + + + | Specimen | + + | Blood - Blood | | (substance) | + + + + + | Narrative | Performed At | + + + | Interpret results in conjunction with other diagnostic tests and | | | clinical information. | [facility] | | | [facility] | + + + + + + + + | Performing | Address | City/State/Zipcode | Phone Number | | Organization | | | | + + + + + | [facility] | [address] | [place], [place] | | | LAB | | [address] | | + + + + + ED INFORMATION EXCHANGE (01/18/2020 10:04 AM PDT) + + | Specimen | + + | | + + + + + | Narrative | Performed At | + + + | COLLECTIVE?NOTIFICATION?01/18/2020 10:03?JONH VAZQUEZ? | [facility] | | Criteria Met 5 Visits In 365 Days Security and Safety | MEDICAL | | No recent Security Events currently on file ED Care Guidelines | TECHNOLOGIES | | There are currently no ED Care Guidelines for this patient. Please | | | check your facility's medical records system. E.D. | | | Visit Count (12 mo.) Facility Visits [facility] | | | [place] 1 [facility] 6 Total 7 Note: Visits | | | indicate total known visits. Recent Emergency Department Visit | | | Summary Date Facility City State Type Diagnoses or Chief Complaint | | | Jan 18, 2020 [facility]. [place]. [place] Emergency 10,800. | | | anxiety Jan 17, 2020 [facility]. [place]. [place] Emergency | | | 10,800. anxiety Jan 09, 2020 [facility]. [place]. [place] | | | Emergency 10,800. recheck anxiety 18,400. Adjustment | | | disorder, unspecified 18,400. Anxiety disorder, unspecified | | | Jan 09, 2020 [facility]. [place]. [place] Emergency 10,800. | | | ANXIETY 18,400. Anxiety disorder, unspecified Jan 08, 2020 | [facility] [place] Emergency Anxiety | | | Panic Attack Panic disorder [episodic paroxysmal anxiety] | | | Jan 03, 2020 [facility]. [place] Emergency 10,800. | | | anxiety, sob 18,400. Panic disorder [episodic paroxysmal | | | anxiety] Dec 25, 2019 [facility]. [place] Emergency | | | 10,800. CP 18,400. Chest pain, unspecified | | | Recent Inpatient Visit Summary No recorded inpatient visits. | | | Care Team Provider Specialty Phone Fax Service Dates BUNNY, | | | [facility] Clinic/Center: Federally Qualified | | | [facility] ([facility]) Dec 24, 2019 - Current | | | Soniqplay Portal This patient has registered at the [facility] | | | [facility] Emergency Department For more information | | | visit: | | | [email or web address] | | | [email or web address] d PLEASE NOTE: 1. Any care recommendations [...] or completeness of information provided. ? 2020 [employer] | | | [employer]. - www.[employer] | | + + + + + | Procedure Note | + + | Service Account, Rtf Results Inbound - 01/18/2020 10:06 AM PDT Formatting of this | | note might be different from the original.COLLECTIVE?NOTIFICATION?01/18/2020 | | 10:03?JONH VAZQUEZ? Met 5 Visits In 365 DaysSecurity and SafetyNo | | recent Security Events currently on fileED Care GuidelinesThere are currently no ED Care | | Guidelines for this patient. Please check your facility's medical records system.E.D. | | Visit Count (12 mo.)Facility Visits [facility] 1 [facility] | | [facility] 6 Total 7 Note: Visits indicate total known visits. Recent Emergency | | Department Visit SummaryDate Facility City State Type Diagnoses or Chief Complaint Srini | | 2019 [facility]. [place]. [place] Emergency 10,800. anxiety Jan 17, 2020 | | [facility]. [place]. [place] Emergency 10,800. anxiety Jan 09, 2020 | | [facility]. [place]. [place] Emergency 10,800. recheck anxiety 18,400. Adjustment | | disorder, unspecified 18,400. Anxiety disorder, unspecified Jan 09, 2020 | | [facility] [place]. [place] Emergency 10,800. ANXIETY 18,400. Anxiety disorder, | | unspecified Jan 08, 2020 [facility]. [place] Emergency Anxiety | | Panic Attack Panic disorder [episodic paroxysmal anxiety] Jan 03, 2020 | | [facility] [place]. [place] Emergency 10,800. anxiety, sob 18,400. Panic disorder | | [episodic paroxysmal anxiety] Dec 25, 2019 [facility]. [place]. [place] Emergency | | 10,800. CP 18,400. Chest pain, unspecified Recent Inpatient Visit SummaryNo recorded | | inpatient visits. Care TeamProvider Specialty Phone Fax Service Dates ATCO, | | [facility] Clinic/Center: [facility] ([facility]) | | Dec 24, 2019 - Current Soniqplay PortalThis patient has registered at | | the [facility] Emergency Department For more information visit: | | [email or web address]/[email or web address] PLEASE | | NOTE: 1. Any care [...] completeness of information | | provided.? 2019 [employer] - www.[employer] | | | |Jan 09, 2020 [facility]. [place] Emergency | | 10,800. recheck anxiety | | 18,400. Adjustment disorder, unspecified | | 18,400. Anxiety disorder, unspecified | | | |Jan 09, 2020 [facility]. [place] Emergency | | 10,800. ANXIETY | | 18,400. Anxiety disorder, unspecified | | | |Jan 08, 2020 [facility]. [place] Emergency | | Anxiety | | Panic Attack | | Panic disorder [episodic paroxysmal anxiety] | | | |Jan 03, 2020 [facility]. [place] Emergency | | 10,800. anxiety, sob | | 18,400. Panic disorder [episodic paroxysmal anxiety] | | | |Dec 25, 2019 [facility]. [place] Emergency | | 10,800. CP | | 18,400. Chest pain, unspecified | | | | | | | |Recent Inpatient Visit Summary | |No recorded inpatient visits. | | | |Care Team | |Provider Specialty Phone Fax Service Dates | |[facility] Clinic[facility]Center: [facility] ( [facility]) Dec 24, 2019 - Current | | | |Soniqplay Portal | |This patient has registered at the [facility] Emergency Department | |For more information visit: [email or web address] | |PLEASE NOTE: | | 1. Any [...] of information provided. | | | |? 2019 [employer] - [employer] | + + + + + + + | Performing | Address | City/State/Zipcode | Phone Number | | Organization | | | | + + + + + | [facility] | [address] | [place], [place] | [phone] | | TECHNOLOGIES | [address] | [address] | | + + + + + EKG, ADULT - [facility] ONLY (01/18/2020 10:03 AM PDT) + + + + + + | Component | Value | Ref Range | Performed | Pathologist | | | | | At | Signature | + + + + + + | EKG | Test Reason : OPENBlood | | [facility] - | | | DIAGNOSIS | Pressure : */* mmHGVent. | | CARDIOLOGY | | | | Rate : 078 BPM | | | | | | Atrial Rate : 077 BPM | | | | | | P-R Int : 000 ms | | | | | | QRS Dur : 086 ms | | | | | | QT Int : 371 ms | | | | | | P-R-T Axes : 032 | | | | | | 017 024 degrees QTc | | | | | | Int : 423 msNormal sinus | | | | | | rhythmNormal ECGWhen | | | | | | compared with ECG of 2 | | | | | | Jan 2020no significant | | | | | | changeConfirmed by Leola | | | | | | Wilberto ([id number]) on 01/19/2020 | | | | | | 2:29:03 PMReferred By: | | | | | | | | | | | | Finalized By:Wilberto Bhagat | | | | + + + + + + + + | Specimen | + + | | + + + + + | Narrative | Performed At | + + + | | | + + + + +---------+ + + | Performing | Address | City/State/Zipcode | Phone Number | | Organization | | | | + +---------+ + + | [facility] | | | | [facility] | | | | + +---------+ + + documented in this encounter Visit Diagnoses + + | Diagnosis | + + | Chest pain, unspecified type - Primary | + + documented in this encounter
--- OUTSIDE RECORDS SUMMARY | ~2020-02-03 | XMS | Encounter Summary ---
Demographics + + + | Address | [address] | | | [place] [address] | + + + | Home Phone | | + + + | Preferred Language | Unknown | + + + | Marital Status | Single | + + + | Quaker Affiliation | NRP | + + + [...] Team Providers + +------+ + | Care Furnace Brazer Name | Role | Phone | + [...] Medicine [address] | DO [address] [facility] | | | | | [place], [place] | [facility] | | | 01/09/ | | [address] | [place], [place] | | | 2019 | | | [address] | | | | | | [phone] | | | | | | | [...] activity): 1. Grounding techniques (handout provided by [facility]) 2. Attending to nervous system worksheet (provided by [facility]) 3. Leaving the house and going for [...] crisis: 1. Clinical Name: Natalie Bragg in [place] 2. Local Urgent Care Services: Natalie Bragg in [facility] Address: [address] [address] Urgent Care Services 3. Suicide Prevention Lifeline Phone: [phone] ([phone]) Crisis Resources: [facility] Crisis Line: 24/01, Call: [phone] [place]isha Bragg [facility] [address] [address] This is a crisis center and should you be in a mental health crisis or need immediate suppo rt. To access, please call the crisis line at [phone] or go to the [place] [facility] between the hours of 9:00am to 8:30 pm. The Crisis Text Line - Text HOME to 418112 A conversion worker will text you back and continue to text you. This is a free service. National Suicide Prevention Lifeline: 948.257.2971 Espao: 211.127.4329 Alcohol and Drug Helpline: 518.949.6178 Domestic Violence Resource Center: 877.256.3263 Veterans Crisis Line: 795.316.7540 Press 1 Text: 397499 Problem Gambling Helpline: 508.786.3026 [place] Poison Control Hotline: 994.519.4408 Step 6: Making the environment safe: 1. Taking space from family 2. Keeping schedule The one thing that is most important to me and worth living for is: Family AttachmentsThe following attachments cannot be sent through Care Everywhere.Adjustment Diso rder (Peruvian)documented in this encounter Medications at Time of [...] COVID-19 Lab Result - | | | [place] - A specimen was collected from this patient for | | | COVID-19, results pending / Attributed By: Linda_ / Attributed | | | On: 01/08/2020 E.D. Visit Count (12 mo.) Facility | | | Visits [facility] 1 [facility] | | | [facility] 4 Total 5 Note: Visits indicate total known visits. | | | Recent Emergency Department Visit Summary Date Facility City State | | | Type Diagnoses or Chief Complaint Jan 09, 2020 [facility]. | | | [place]. [place] Emergency 10,800. recheck anxiety Jan 09, 2020 | | | [facility]. [place] Emergency 10,800. ANXIETY | | | 18,400. Anxiety disorder, unspecified Jan 08, 2020 [facility] | | | [place] Emergency Anxiety Panic Attack | | | Panic disorder [episodic paroxysmal anxiety] Jan 03, 2020 | | | [facility]. [place] Emergency 10,800. anxiety, sob | | | 18,400. Panic disorder [episodic paroxysmal anxiety] Dec 24, | | | 2019 [facility]. [place] Emergency 10,800. CP | | | 18,400. Chest pain, unspecified Recent Inpatient Visit | | | Summary No recorded inpatient visits. Care Team Provider | | | Specialty Phone Fax Service Dates [facility] | | | CLINIC Clinic/Center: [facility] ([facility]) ([phone]) | | | [phone] Dec 24, 2019 - Current Fitmoo Portal This | | | patient has registered at the [facility] Emergency | | | Department For more information visit: | | | [email or web address] | | | [id number] PLEASE NOTE: 1. Any care recommendations [...] or completeness of information provided. ? 2020 [employer] | | | [employer] - [email or web address] | | + + + + + [...] records system.Flags Pending COVID-19 Lab Result - [place] - A | | specimen was collected from this patient for COVID-19, results pending / Attributed By: | | [place]_ / Attributed On: 01/08/2020 E.D. Visit Count (12 mo.)Facility Visits | | [facility] 1 [facility] 4 Total 5 Note: | | Visits indicate total known visits. Recent Emergency Department Visit SummaryDate | | Facility City State Type Diagnoses or Chief Complaint Jan 09, 2020 [facility]. | | [place]. [place] Emergency 10,800. recheck anxiety Jan 09, 2020 [facility]. | | [place] Emergency 10,800. ANXIETY 18,400. Anxiety disorder, unspecified Jan 08, 2020 | | [facility]. [place] Emergency Anxiety Panic Attack Panic | | disorder [episodic paroxysmal anxiety] Jan 03, 2020 [facility]. [place] | | Emergency 10,800. anxiety, sob 18,400. Panic disorder [episodic paroxysmal | | anxiety] Dec 25, 2019 [facility]. [place] Emergency 10,800. CP 18,400. | | Chest pain, unspecified Recent Inpatient Visit SummaryNo recorded inpatient visits. | | Care TeamProvider Specialty Phone Fax Service Dates [facility] Clinic/Center: [facility] ([facility]) Dec 23 | | 2019 - Current AniwaysThis patient has registered at the [facility] | | Hospital Emergency Department For more information visit: | | [email or web address] PLEASE | | NOTE: 1. Any care [...] to the | | limitations of applicable [employer] Policies. 3. You should consult directly with | | the organization that provided a care guideline or other clinical history with any | | questions about additional information or accuracy or completeness of information | | provided.? 2019 [employer]. - [email or web address] | | 10,800. recheck anxiety | | | |Jan 09, 2020 [facility]. [place] Emergency | | 10,800. ANXIETY | | 18,400. Anxiety disorder, unspecified | | | |Jan 08, 2020 [facility] [place] Emergency | | Anxiety | | Panic Attack | | Panic disorder [episodic paroxysmal anxiety] | | | |Jan 03, 2020 [facility]. [place] Emergency | | 10,800. anxiety, sob | | 18,400. Panic disorder [episodic paroxysmal anxiety] | | | |Dec 25, 2019 [facility]. [place] Emergency | | 10,800. CP | | 18,400. Chest pain, unspecified | | | | | | | |Recent Inpatient Visit Summary | |No recorded inpatient visits. | | | |Care Team | |Provider Specialty Phone Fax Service Dates | |[facility] Clinic/Center: [facility] ( [facility]) Dec 24, 2019 - Current | | | |Fitmoo Portal | |This patient has registered at the [facility] Emergency Department | |For more information visit: [email or web address] | |PLEASE NOTE: | | 1. Any [...] information provided. | | | |? 2020 [employer]. - [email or web address] | + + + + + + + | Performing | Address | City/State/Zipcode | Phone Number | | Organization | | | | + + + + + | [facility] | [address] | [place], [place] | [phone] | | TECHNOLOGIES | [address] | [address] | | + + + + + documented in this encounter Visit Diagnoses + + | Diagnosis | + + | Adjustment disorder, unspecified type - Primary | + + | Anxiety Anxiety state, unspecified | + + documented in this encounter
--- OUTSIDE RECORDS SUMMARY | ~2020-02-03 | XMS | Encounter Summary ---
Demographics + + + | Address | [address] | | | [place] [address] | + + + | Home Phone | | + + + | Preferred Language | Unknown | + + + | Marital Status | Single | + + + | Latter-Day Affiliation | NRP | + + + [...] Team Providers + +------+ + | Care Ironer Hand Name | Role | Phone | + +------+ + | No Pcp Per Patient | PCP | Unavailable | + +------+ + Encounter Details +--------+--------+ + + + | Date | Type | Department | Care Team | Description | +--------+--------+ + + + | 01/08/ | Travel | | | | | [...]
--- OUTSIDE RECORDS SUMMARY | ~2020-02-03 | XMS | Clinical Summary ---
Demographics + + + | Address | [address] | | | [place] [address] | + + + | Home Phone | | + + + | Preferred Language | Unknown | + + + | Marital Status | Single | + + + | Confucianism Affiliation | NRP | + + + | Race | White | + + + | Ethnic Group | Not or | + + + Author + + + | Author | [facility] | + + + | Organization | [facility] | + + + | Address | Unknown | + + + | Phone | Unavailable | + + + Support + + +---------+ + | Name | Relationship | Address | Phone | + + +---------+ + | Tahira Lan | ECON | Unknown | | + + +---------+ + Care Team Providers + +------+ + | Care Outcomes Specialist Name | Role | Phone | + +------+ + | Unknown | PCP | Unavailable | + +------+ + Source Comments FLORENCIA is fully live on both [facility] Ambulatory and [facility] InPatient.[facility] Allergies No Known Allergies Medications + + + +---------+------+------+-------+ | Medication | Sig | Dispensed | Refills | Star | End | Statu | | | | | | t | Date | s | | | | | | Date | | | + + + +---------+------+------+-------+ | hydrOXYzine 50 mg | Take 1 tablet by | 16 | 0 | 07/0 | | Activ | | oral tablet | mouth every six | tablet | | 8/20 | | e | | | hours as needed for | | | 20 | | | | | anxiety. | | | | | | + + + +---------+------+------+-------+ Active Problems Not on file Encounters +--------+ + + + + | Date | Type | Specialty | Care Team | Description | +--------+ + + + + | 01/29/ | Emergency | Emergency Medicine | Mima Gibson | | | 2019 | | | MD Mariely | | +--------+ + + + + | 01/29/ | Travel | | | | | 2019 | | | | | +--------+ + + + + | 01/17/ | Emergency | Emergency Medicine | Mahendra | | | 2019 | | | Fredis Workman DO | | +--------+ + + + + | 01/17/ | Travel | | | | | 2019 | | | | | +--------+ + + + + | 01/16/ | Emergency | Emergency Medicine | | | | 2019 | | | | | +--------+ + + + + | 01/16/ | Travel | | | | | 2019 | | | | | +--------+ + + + + | 01/08/ | Emergency | Emergency Medicine | Chema Beck, | | | 2019 - | | | DO | | | | | | | | | 01/09/ | | | | | 2019 | | | | | +--------+ + + + + | 01/08/ | Emergency | Emergency Medicine | Chema Beck, | | | 2019 | | | DO | | +--------+ + + + + | 01/08/ | Travel | | | | | 2019 | | | | | +--------+ + + + + | 01/02/ | Emergency | Emergency Medicine | Mike Ariza MD | | | 2019 - | | | | | | | | | | | | 01/03/ | | | | | | 2019 | | | | | +--------+ + + + + | 01/02/ | Travel | | | | | 2019 | | | | | +--------+ + + + + | 12/24/ | Emergency | Emergency Medicine | Chema Beck, | | | 2019 | | | DO | | +--------+ + + + + | 12/24/ | Travel | | | | | 2020 | | | | | +--------+ + + + + from Last 3 Months Social History + +-------+ +--------+------+ | Tobacco [...] | | | + + + + Last Filed Vital Signs + + + [...] | | + + + + + Plan of Treatment + + + + + | Health Maintenance | Due Date | Last Done | Comments | + + + + + | Pneumococcal | | | | | vaccination (1 of 1 | 6 | | | | - PPSV23) | | | | + + + + + | Influenza (Flu) | | | | | vaccination (#1) | 0 | | | + + + + + Procedures + +--------+ + + + | [...] EKG, ADULT - [facility] | Urgent | 01/03/2020 | | Results for this | | ONLY | | 11:57 PM | | procedure are in the | | | | PDT | | results section. | + +--------+ + + + | X-RAY CHEST 2 VIEW | Urgent | 12/25/2019 | | Results for this | | | | 6:18 PM | | procedure are in the | | | | PDT | | results section. | + +--------+ + + + | CBC AND AUTO DIFF | Urgent | 12/25/2019 | | Results for this | | | | 5:26 PM | | procedure are in the | | | | PDT | | results section. | + +--------+ + + + | BASIC METABOLIC SET | Urgent | 12/25/2019 | | Results for this | | (NA, K, CL, TCO2, | | 5:26 PM | | procedure are in the | | BUN, CR, GLU, CA) | | PDT | | results section. | + +--------+ + + + | TROPONIN I, PLASMA | Urgent | 12/25/2019 | | Results for this | | | | 5:26 PM | | procedure are in the | | | | PDT | | results section. | + +--------+ + + + | CBC, WITH | Urgent | 12/25/2019 | | Results for this | | DIFFERENTIAL | | 5:26 PM | | procedure are in the | | | | PDT | | results section. | + +--------+ + + + | VAMSI, ADULT - TUALITY | Urgent | 12/25/2019 | | Results for this | | ONLY | | 5:03 PM | | procedure are in the | | | | PDT | | results section. | + +--------+ + + + from Last 3 Months Results ED INFORMATION EXCHANGE (01/30/2020 4:51 PM PDT)Only the most recent of 5 results within t he time period is included. + + | Specimen | + + | | + + + + + | Narrative | Performed At | + + + | COLLECTIVE?NOTIFICATION?01/30/2020 16:51?JONH VAZQUEZ?MRN: | [facility] | | [id number] Criteria Met 5 Visits In 365 Days Security and | MEDICAL | | Safety No recent Security Events currently on file ED Care | TECHNOLOGIES | | Guidelines There are currently no ED Care Guidelines for this | | | patient. Please check your facility's medical records system. | | | E.D. Visit Count (12 mo.) Facility Visits [facility] | | | [facility] [address] [address] Total 8 | | | Note: Visits indicate total known visits. Recent Emergency | | | Department Visit Summary Date Facility City State Type Diagnoses or | | | Chief Complaint Jan 30, 2020 [facility]. [place] | | | Emergency 10,800. ANXIETY / PANIC ATTACK Jan 18, 2020 | | | [facility]. [place] Emergency 10,800. anxiety | | | 18,400. Chest pain, unspecified Jan 17, 2020 [facility] | | | [place]. [place] Emergency 10,800. anxiety Jan 09, 2020 [facility] | | | [facility]. [place] Emergency 10,800. recheck anxiety | | | 18,400. Adjustment disorder, unspecified 18,400. Anxiety | | | disorder, unspecified Jan 09, 2020 [facility]. [place] | | | Emergency 10,800. ANXIETY 18,400. Anxiety disorder, | | | unspecified Jan 08, 2020 [facility] [place] | | | Emergency Anxiety Panic Attack Panic disorder | | | [episodic paroxysmal anxiety] Jan 03, 2020 [facility] | | | [place]. [place] Emergency 10,800. anxiety, sob 18,400. Panic | | | disorder [episodic paroxysmal anxiety] Dec 25, 2019 [facility] | | | [facility]. [place] Emergency 10,800. CP 18,400. Chest | | | pain, unspecified Recent Inpatient Visit Summary No | | | recorded inpatient visits. Care Team Provider Specialty Phone | | | Fax Service Dates [facility] | | | Clinic[facility]Center[facility] ([facility]) ([phone] | | | [phone] Dec 24, 2019 - Current [employer] Portal This | | | patient has registered at the [facility] Emergency | | | Department For more information visit: | | | [email or web address] | | | [phone] 5 PLEASE NOTE: 1. Any care recommendations [...] or completeness of information provided. ? 2020 [facility] | | | [employer]. - [email or web address] | | + + + + + [...] | system.E.D. Visit Count (12 mo.)Facility Visits [facility] 1 | | [facility] 7 Total 8 Note: Visits indicate total known visits. Recent | | Emergency Department Visit SummaryDate Facility City State Type Diagnoses or Chief | | Complaint Jan 30, 2020 [facility] Emergency 10,800. ANXIETY / | | PANIC ATTACK Jan 18, 2020 [facility] Emergency 10,800. anxiety | | 18,400. Chest pain, unspecified Jan 17, 2020 [facility] Emergency | | 10,800. anxiety Jan 09, 2020 [facility] Emergency 10,800. | | recheck anxiety 18,400. Adjustment disorder, unspecified 18,400. Anxiety disorder, | | unspecified Jan 09, 2020 [facility] Emergency 10,800. ANXIETY | | 18,400. Anxiety disorder, unspecified Jan 08, 2020 [facility]. | | [place] Emergency Anxiety Panic Attack Panic disorder [episodic paroxysmal anxiety] | | Jan 03, 2020 [facility]. [place] Emergency 10,800. anxiety, sob 18,400. | | Panic disorder [episodic paroxysmal anxiety] Dec 25, 2019 [facility]. | | [place] Emergency 10,800. CP 18,400. Chest pain, unspecified Recent Inpatient Visit | | SummaryNo recorded inpatient visits. Care TeamProvider Specialty Phone Fax Service Dates | | [facility] Clinic/Center: [facility] | | [place] ([facility]) Dec 24, 2019 - [facility] | | registered at the [facility] Emergency Department For more information | | visit: [email or web address] | | PLEASE NOTE: 1. Any care [...] to the | | limitations of applicable [employer] Policies. 3. You should consult directly with | | the organization that provided a care guideline or other clinical history with any | | questions about additional information or accuracy or completeness of information | | provided.? 2020 [employer]. - [email or web address] | | | |Jan 17, 2020 [facility]. [place] Emergency | | 10,800. anxiety | | | |Jan 09, 2020 [facility] Emergency | | 10,800. recheck anxiety | | 18,400. Adjustment disorder, unspecified | | 18,400. Anxiety disorder, unspecified | | | |Jan 09, 2020 [facility]. [place] Emergency | | 10,800. ANXIETY | | 18,400. Anxiety disorder, unspecified | | | |Jan 08, 2020 [facility]. [place] Emergency | | Anxiety | | Panic Attack | | Panic disorder [episodic paroxysmal anxiety] | | | |Jan 03, 2020 [facility]. [place] Emergency | | 10,800. anxiety, sob | | 18,400. Panic disorder [episodic paroxysmal anxiety] | | | |Dec 25, 2019 [facility]. [place] Emergency | | 10,800. CP | | 18,400. Chest pain, unspecified | | | | | | | |Recent Inpatient Visit Summary | |No recorded inpatient visits. | | | |Care Team | |Provider Specialty Phone Fax Service Dates | |[facility] Clinic[facility]Center[facility] ( [facility]) Dec 24, 2019 - Current | | | |[employer] Portal | |This patient has registered at the [facility] Emergency Department | |For more information visit: [email or web address] | |PLEASE NOTE: | | 1. Any care recommendations and other clinical information are provided as guidelines or for historical purposes only, and providers should exercise their own clinical judgment whe n providing care. | | 2. You may only use this information for purposes of treatment, payment or health care o perations activities, and subject to the limitations of applicable [employer] Policies. | | 3. You should consult directly with the organization that provided a care guideline or o ther clinical history with any questions about additional information or accuracy or complet eness of information provided. | | | |? 2019 [employer]. - [email or web address] | + + + + + + + | Performing | Address | City/State/Zipcode | Phone Number | | Organization | | | | + + + + + | [facility] | [address] | [place], [place] | [phone] | | TECHNOLOGIES | [address] | [address] | | + + + + + CBC AND AUTO DIFF (01/18/2020 10:52 AM PDT)Only the most recent of 2 results within the is included. + + + + + + | [...] [facility] | [address] | [place], [place] | | | LAB | | [address] | | + + + + + TROPONIN I, PLASMA (01/18/2020 10:52 AM PDT)Only the most recent of 2 results within the ti wa period is included. + +-------+ + + + | Component [...] and | | | clinical information. | [facility] | | | [facility] | + + + + + + + + | Performing | Address | City/State/Zipcode | Phone Number | | Organization | | | | + + + + + | [facility] | [address] | [place], [place] | | | LAB | | [address] | | + + + + + BASIC METABOLIC SET (NA, K, CL, TCO2, BUN, CR, GLU, CA) (01/18/2020 10:52 AM PDT)Only the m kimberlee recent of 2 results within the time period is included. + +-------+ + + + | Component [...] | | [facility] | | | [place] | | | | | + +-------+ [...] Disease Education Program. Estimated GFR Interpretive | [facility] | | Information: <60 mL/min/1.73 sq m [...] | + + + + + | [facility] | [address] | [place], [place] | | | LAB | | [address] | | + + + + + EKG, ADULT - [facility] ONLY (01/18/2020 10:03 AM PDT)Only the most recent of 3 results within the time period is included. + + + + + + | [...] | | | + +---------+ + + X-RAY CHEST 2 VIEW (12/25/2019 6:18 PM PDT) + + | Specimen | + + | | + + + + + | Narrative | Performed At | + + + | EXAM DESCRIPTION: X-RAY CHEST 2 VIEW CLINICAL HISTORY: 29 y/o | [facility] | | M patient. Chest pain COMPARISON: None. TECHNIQUE: Frontal | RADIOLOGY VOICE | | and lateral views of the chest. FINDINGS: Lungs are mildly | RECOGNITION | | hyperaerated. The cardiac and mediastinal silhouettes are | | | unremarkable. The lungs are clear. There is no pneumothorax or | | | pleural effusion. There is no acute osseous abnormality. | | | IMPRESSION: Lungs are mildly hyperaerated. No focal infiltrates. | | | Signed By: Robbie Esquivel M.D. Staff Radiologist On 12/25/2019 | | | 18:19:16 | | + + + + --------+ | Procedure Note | + --------+ | Service Account, [employer] Res In Interface - 12/25/2019 6:22 PM PDT EXAM | | DESCRIPTION:X-RAY CHEST 2 VIEW CLINICAL HISTORY:29 y/o M patient. Chest pain | | COMPARISON:None. TECHNIQUE:Frontal and lateral views of the chest. FINDINGS:Lungs are | | mildly hyperaerated. The cardiac and mediastinal silhouettes are unremarkable. The | | lungsare clear. There is no pneumothorax or pleural effusion. There is no acute osseous | | abnormality. IMPRESSION:Lungs are mildly hyperaerated. No focal infiltrates. Signed By: | | Robbie Esquivel M.D. Staff Radiologist On 12/25/2019 18:19:16 | |None. | | | |TECHNIQUE: | |Frontal and lateral views of the chest. | | | |FINDINGS: | |Lungs are mildly hyperaerated. The cardiac and mediastinal silhouettes are unremarkable. Th e lungs | |are clear. There is no pneumothorax or pleural effusion. There is no acute osseous abnormal ity. | | | |IMPRESSION: | |Lungs are mildly hyperaerated. No focal infiltrates. | | | | | |Signed By: Robbie Esquivel M.D. Staff Radiologist On 12/25/2019 18:19:16 | + --------+ + + + + + | Performing | Address | City/State/Zipcode | Phone Number | | Organization | | | | + + + + + | [facility] | [address] | [place], [place] | [phone] | | VOICE RECOGNITION | | [address] | | + + + + + from Last 3 Months Insurance + +--------+ +--------+-------+---------+--------+ | Payer | Benefi | Subscriber | Effect | Phone | Address | Type | | | t Plan | ID | jeanette | | | | | | / | | Dates | | | | | | Group | | | | | | + +--------+ +--------+-------+---------+--------+ | OXYGEN EQUIPMENT TECHNICIAN MEDICAID | OXYGEN EQUIPMENT TECHNICIAN | xxxxxxxx | Effect | | | Medica | | | CAREOR | | jeanette | | | id | | | | | for | | | | | | HEALTH | | all | | | | | | SHARE | | dates | | | | + +--------+ +--------+-------+---------+--------+ + +--------+ +--------+ + + | Guarantor Name | Accoun | Relation to | Date | Phone | Billing Address | | | t Type | Patient | of | | | | | | | | | | + +--------+ +--------+ + + | Jonh Vazquez | Person | Self [birth year] | [address] | | | al/Fam | | 1991 | [phone] | [address] [place], [place] | | | [place] | | | [address] (Home) | [address] | + +--------+ +--------+ + +
--- OUTSIDE RECORDS SUMMARY | ~2020-02-03 | XMS | Clinical Summary ---
Demographics + + + | Address | [address] | | | [place] [address] | + + + | Home Phone | | + + + | Preferred Language | Unknown | + + + | Marital Status | Single | + + + | Baptist Affiliation | NRP | + + + [...] Team Providers + +------+ + | Care Clinical Trial Leader Name | Role | Phone | + +------+ + | Unknown | PCP | Unavailable | + +------+ + Source Comments FLORENCIA is fully live on both [facility] Ambulatory and [facility] InPatient.[facility] Allergies No Known Allergies Medications + + [...] COLLECTIVE?NOTIFICATION?01/30/2020 16:51?JONH VAZQUEZ?MRN: | [facility] | | [id number] Criteria Met 5 Visits In 365 Days Security and | MEDICAL | | Safety No recent Security Events currently on file ED Care | TECHNOLOGIES | | Guidelines There are currently no ED Care Guidelines for this | | | patient. Please check your facility's medical records system. | | | E.D. Visit Count (12 mo.) Facility Visits [facility] | | | [facility] [address] [address] Total 8 | | | Note: Visits indicate total known visits. Recent Emergency | | | Department Visit Summary Date Facility City State Type Diagnoses or | | | Chief Complaint Jan 30, [address] [facility]. [place] | | | Emergency 10,800. ANXIETY / PANIC ATTACK Jan 18, 2020 | | | [facility]. [place] Emergency 10,800. anxiety | | | 18,400. Chest pain, unspecified Jan 17, [address] [facility] | | | [place]. [place] Emergency 10,800. anxiety Jan 09, 2020 [facility] | | | [facility]. [place] Emergency 10,800. recheck anxiety | | | 18,400. Adjustment disorder, unspecified 18,400. Anxiety | | | disorder, unspecified Jan 09, [address] [facility]. [place] | | | Emergency 10,800. ANXIETY 18,400. Anxiety disorder, | | | unspecified Jan 08, 2020 [facility] [place] | | | Emergency Anxiety Panic Attack Panic disorder | | | [episodic paroxysmal anxiety] Jan 03, [address] [facility] | | | [place]. [place] Emergency 10,800. anxiety, sob 18,400. Panic | | | disorder [episodic paroxysmal anxiety] Dec 25, 2019 [facility] | | | [facility]. [place] Emergency 10,800. CP 18,400. Chest | | | pain, unspecified Recent Inpatient Visit Summary No | | | recorded inpatient visits. Care Team Provider Specialty Phone | | | Fax Service Dates [facility] | | | Clinic/Center: [facility] ([facility]) ([phone] | | | [phone] Dec 24, 2019 - Current [employer] Portal This | | | patient has registered at the [facility] Emergency | | | Department For more information visit: | | | [email or web address] | | | [phone] PLEASE NOTE: 1. Any care recommendations [...] or completeness of information provided. ? 2020 [employer] | | | [employer]. - [email or web address] | | + + + + + [...] | system.E.D. Visit Count (12 mo.)[address]ility Visits [facility] 1 | | [facility] 7 Total 8 Note: Visits indicate total known visits. Recent | | Emergency Department Visit SummaryDate Facility City State Type Diagnoses or Chief | | Complaint Jan 30, [address] [facility]. [place] Emergency 10,800. ANXIETY / | | PANIC ATTACK Jan 18, [address] [facility]. [place] Emergency 10,800. anxiety | | 18,400. Chest pain, unspecified Jan 17, [address] [facility]. [place] Emergency | | 10,800. anxiety Jan 09, [address] [facility]. [place] Emergency 10,800. | | recheck anxiety 18,400. Adjustment disorder, unspecified 18,400. Anxiety disorder, | | unspecified Jan 09, [address] [facility]. [place] Emergency 10,800. ANXIETY | | 18,400. Anxiety disorder, unspecified Jan 08, 2020 [facility]. | | [place] Emergency Anxiety Panic Attack Panic disorder [episodic paroxysmal anxiety] | | Jan 03, [address] [facility]. [place] Emergency 10,800. anxiety, sob 18,400. | | Panic disorder [episodic paroxysmal anxiety] Dec 25, [address] [facility]. | | [place] Emergency 10,800. CP 18,400. Chest pain, unspecified Recent Inpatient Visit | | SummaryNo recorded inpatient visits. Care TeamProvider Specialty Phone Fax Service Dates | | [facility] | | [place] ([facility]) Dec 24, 2019 - [facility] patient [facility] | | registered at the [facility] Emergency Department For more information | | visit: [email or web address] | | PLEASE NOTE: 1. Any care [...] to the | | limitations of applicable [employer] Policies. 3. You should consult directly with | | the organization that provided a care guideline or other clinical history with any | | questions about additional information or accuracy or completeness of information | | provided.? 2020 [employer]. - [email or web address] | | | |Jan 17, [address] [facility]. [place] Emergency | | 10,800. anxiety | | | |Jan 09, [address] [facility]. [place] Emergency | | 10,800. recheck anxiety | | 18,400. Adjustment disorder, unspecified | | 18,400. Anxiety disorder, unspecified | | | |Jan 09, [address] [facility]. [place] Emergency | | 10,800. ANXIETY | | 18,400. Anxiety disorder, unspecified | | | |Jan 08, 2020 [facility]. [place] Emergency | | Anxiety | | Panic Attack | | Panic disorder [episodic paroxysmal anxiety] | | | |Jan 03, [address] [facility]. [place] Emergency | | 10,800. anxiety, sob | | 18,400. Panic disorder [episodic paroxysmal anxiety] | | | |Dec 25, [address] [facility]. [place] Emergency | | 10,800. CP | | 18,400. Chest pain, unspecified | | | | | | | |Recent Inpatient Visit Summary | |No recorded inpatient visits. | | | |Care Team | |Provider Specialty Phone Fax Service Dates | |[facility] Clinic/Center: [facility] ( [facility]) Dec 24, 2019 - Current | | | |[employer] Portal | |This patient has registered at the [facility] Emergency Department | |For more information visit: [email or web address] | |PLEASE NOTE: | | 1. Any care recommendations and other clinical information are provided as guidelines or for historical purposes only, and providers should exercise their own clinical judgment whe n providing care. | | 2. You may only use this information for purposes of treatment, payment or health care o perations activities, and subject to the limitations of applicable [employer] Policies. | | 3. You should consult directly with the organization that provided a care guideline or o ther clinical history with any questions about additional information or accuracy or complet eness of information provided. | | | |? 2019 [employer]. - [email or web address] | + + + + + + + | Performing | Address | City/State/Zipcode | Phone Number | | Organization | | | | + + + + + | [facility] | [address] | [place], [place] | [phone] | | TECH[employer]OLOGIES | [address] | [address] | | + + + + + [...] [facility] | [address] | [place], [place] | | | LAB | | [address] | | + + + + + TROPONIN I, PLASMA (01/18/2020 10:52 AM PDT)Only the most recent of 2 results within the ti ky period is included. + +-------+ + + [...] [facility] | [address] | [place], [place] | | | LAB | | [address] | | + + + + + [...] | | [facility] | | | [place] | | | | | + +-------+ [...] [facility] | [address] | [place], [place] | | | LAB | | [address] | | + + + + + [...] Note | + --------+ | Service Account, [employer] Res In Interface - 12/25/2019 6:22 PM [...] RADIOLOGY | [address] | [place], [place] | [phone] | | [facility] | | [address] | | + + + + + [...] | | | + +--------+ +--------+-------+---------+--------+ | ACADEMIC AFFAIRS MANAGER MEDICAID | ACADEMIC AFFAIRS MANAGER | xxxxxxxx | Effect | | | [...] Person | Self | [birth year] | [address] | | | al/Fam | | 1991 | [phone] | [address] [place], [place] | | | [place] | | | [address] (Home) | [address] | + +--------+ +--------+ + +
--- OUTSIDE RECORDS SUMMARY | ~2020-02-03 | XMS | Encounter Summary ---
Demographics + + + | Address | [address] | | | [place] [address] | + + + | Home Phone | | + + + | Preferred Language | Unknown | + + + | Marital Status | Single | + + + | Sabianist Affiliation | NRP | + + + [...] Team Providers + +------+ + | Care Safety Engineer Pressure Vessels Name | Role | Phone | + [...] Medicine [address] | DO [address] [facility] | | | | | [place], [place] | [facility] | | | | | [id number] | [place], [place] | | | | | | [address] | | | | | | [phone] | | | | | | | [...] Discharge Instructions Instructions Chema Beck DO - 01/09/2020[facility] Health Follow up Appointment: Tuesday, Tuesday, or Tuesday at 1100 (follow up within 7 days) [place] [address] [address] [place], [place] [address] [facility] Crisis Line: 24/01, Call: [phone] National Suicide Prevention Lifeline: 192.775.6934 Espaol: [phone] [facility] [place] [address] [facility] [address], [place] [address] This is a crisis center and should you be in a mental health crisis or need immediate suppo rt. To access, please call the crisis line at [phone] or go to the [facility] between the hours of 9:00am to 8:30 pm. AttachmentsThe following attachments cannot be sent through Care Everywhere.Generalized Anx iety Disorder: General Info (Indonesian)documented in this encounter Medications at Time of [...] | Flags Pending COVID-19 Lab Result - [place] - A specimen was | | | collected from this patient for COVID-19, results pending / | | | Attributed By: Linda_ / Attributed On: 01/08/2020 | | | E.D. Visit Count (12 mo.) Facility Visits [facility] | | | Medical Center 1 [facility] 3 Total 4 Note: | | | Visits indicate total known visits. Recent Emergency Department | | | Visit Summary Date Facility City State Type Diagnoses or Chief | | | Complaint Jan 09, 2020 [facility]. [place] Emergency | | | 10,800. ANXIETY [facility] | | | [place] Emergency Anxiety Panic Attack Panic disorder | | | [episodic paroxysmal anxiety] Jan 03, 2020 [facility]. | | | [place]. [place] Emergency 10,800. anxiety, sob 18,400. Panic | | | disorder [episodic paroxysmal anxiety] Dec 25, 2019 [facility] | | | [facility]. [place]. [place] Emergency 10,800. CP 18,400. Chest | | | pain, unspecified Recent Inpatient Visit Summary No | | | recorded inpatient visits. Care Team Provider Specialty Phone | | | Fax Service Dates [facility] | | | Clinic/Center: [facility] ([facility]) ([id number]) | | | [phone] Dec 24, 2019 - Current [employer] Portal This | | | patient has registered at the [facility] Emergency | | | Department For more information visit: | | | [email or web address] | | | [id number] PLEASE NOTE: 1. Any care recommendations [...] or completeness of information provided. ? 2019 [employer] | | | [employer] - www.[employer] | | + + + + + [...] | system.Flags Pending COVID-19 Lab Result - [place] - A specimen was collected from | | this patient for COVID-19, results pending / Attributed By: Linda_ / Attributed On: | | 01/08/2020 E.D. Visit Count (12 mo.)Facility Visits [facility] | | Center 1 [facility] 3 Total 4 Note: Visits indicate total known visits. | | Recent Emergency Department Visit SummaryDate Facility City State Type Diagnoses or | | Chief Complaint Jan 09, 2020 [facility]. [place] Emergency 10,800. ANXIETY | | Jan 08, 2020 [facility]. [place] Emergency Anxiety Panic Attack | | Panic disorder [episodic paroxysmal anxiety] Jan 03, 2020 [facility]. | | [place] Emergency 10,800. anxiety, sob 18,400. Panic disorder [episodic paroxysmal | | anxiety] Dec 25, 2019 [facility]. [place] Emergency 10,800. CP 18,400. | | Chest pain, unspecified Recent Inpatient Visit SummaryNo recorded inpatient visits. | | Care TeamProvider Specialty Phone Fax Service Dates [facility] | [facility] Clinic/Center: [facility] ([facility]) Dec 23, | | 2019 - Current [facility] patient has registered at the [facility] | | Hospital Emergency Department For more information visit: | | [email or web address] PLEASE | | NOTE: 1. Any care [...] completeness of information | | provided.? 2019 [employer]. - www.[employer] | |Jan 09, 2020 [facility]. [place] Emergency | | 10,800. ANXIETY | | | |Jan 08, 2020 [facility]. [place] Emergency | | Anxiety | | Panic Attack | | Panic disorder [episodic paroxysmal anxiety] | | | |Jan 03, 2020 [facility]. [place] Emergency | | 10,800. anxiety, sob | | 18,400. Panic disorder [episodic paroxysmal anxiety] | | | |Dec 25, 2019 [facility]. [place] Emergency | | 10,800. CP | | 18,400. Chest pain, unspecified | | | | | | | |Recent Inpatient Visit Summary | |No recorded inpatient visits. | | | |Care Team | |Provider Specialty Phone Fax Service Dates | |[facility] Clinic/Center: [facility] ( [facility]) Dec 24, 2019 - Current | | | |[employer] Portal | |This patient has registered at the [facility] Emergency Department | |For more information visit: [email or web address] | |PLEASE NOTE: | | 1. Any care recommendations and other clinical information are provided as guidelines or for historical purposes only, and providers should exercise their own clinical judgment whe n providing care. | | 2. You may only use this information for purposes of treatment, payment or health care o perations activities, and subject to the limitations of applicable [employer] Policies. | | 3. You should consult directly with the organization that provided a care guideline or o ther clinical history with any questions about additional information or accuracy or complet eness of information provided. | | | |? 2020 [employer]. - www.[employer] | + + + + + + + | Performing | Address | City/State/Zipcode | Phone Number | | Organization | | | | + + + + + | [employer] | [address] | [place], [place] | [phone] | | [employer] | [address] | [address] | | + + + + + [...]
--- OUTSIDE RECORDS SUMMARY | ~2020-02-03 | XMS | Encounter Summary ---
Demographics + + + | Address | [address] | | | [place] [address] | + + + | Home Phone | | + + + | Preferred Language | Unknown | + + + | Marital Status | Single | + + + | Moravian Affiliation | NRP | + + + [...] Team Providers + +------+ + | Care Gse Mechanic Name | Role | Phone | + [...] + + | 01/02/ | Emergency | [facility] | Mike Ariza MD | | | 2019 - | | Medicine [address] | [address] | | | | | [place], [place] | [facility], | | | 01/03/ | | [address] | [place] [address] | | | 2019 | | | [phone] | | | | | | | [...] in contact | No / Unsure | 01/03/2020 10:53 PM | | with someone who was confirmed or | | PDT | | suspected to have Coronavirus / COVID-19? | | | + + + + documented as of this encounter Last Filed Vital Signs + + + + + | Vital Sign | Reading | Time Taken | Comments | + + + + + | Blood Pressure | 139/86 | 01/04/2020 12:02 AM | | | | | PDT | | + + + + + | Pulse | 81 | 01/03/2020 10:58 PM | | | | | PDT | | + + + + + | Temperature | 36.9 C (98.4 F) | 01/03/2020 10:58 PM | | | | | PDT | | + + + + + | Respiratory Rate | 18 | 01/03/2020 10:58 PM | | | | | PDT | | + + + + + | Oxygen Saturation | 96% | 01/04/2020 12:02 AM | | | | | PDT | | + + + + + | Inhaled Oxygen | - | - | | | Concentration | | | | + + + + + | Weight | 88.5 kg (195 lb) | 01/03/2020 10:58 PM | | | | | PDT | | + + + + + | Height | 175.3 cm (5' 9") | 01/03/2020 10:58 PM | | | | | PDT | | + + + + + | Body Mass Index | 28.8 | 01/03/2020 10:58 PM | | | | | PDT | | + + + + + documented in this encounter Discharge Instructions Instructions Mike Ariza MD - 01/03/2020Consider mindfulness, try the garry [employer]. Try breathing squares. Follow up with PCP for consideration of starting an SSRI medication. Cons ider psychiatry/psychology as well. AttachmentsThe following attachments cannot be sent through Care Everywhere.Panic Attacks ( Yakut)documented in this encounter Plan of Treatment Not on [...] + + documented in this encounter Results EKG, ADULT - [facility] ONLY (01/03/2020 11:57 PM PDT) + + + + + + | Component | Value | Ref Range | Performed | Pathologist | | | | | At | Signature | + + + + + + | EKG | Test Reason : Blood | | TUAL[facility] - | | | DIAGNOSIS | Pressure : */* mmHGVent. | | CARDIOLOGY | | | | Rate : 073 BPM | | | | | | Atrial Rate : 073 BPM | | | | | | P-R Int : 148 ms | | | | | | QRS Dur : 086 ms | | | | | | QT Int : 382 ms | | | | | | P-R-T Axes : 027 | | | | | | 019 022 degrees QTc | | | | | | Int : 420 msNormal sinus | | | | | | rhythmNormal ECGWhen | | | | | | compared with ECG of | | | | | | 25-DEC-2019 17:03,No | | | | | | significant change was | | | | | | foundConfirmed by Bob | | | | | | Armando ([id number]) on | | | | | | 01/05/2020 9:31:19 | | | | | | AMReferred By: | | | | | | Finalized | | | | | | By:Armando Rojas | | | | + + + [...] + | Diagnosis | + + | Panic attack - Primary Panic disorder without agoraphobia | + + documented in this encounter Administered Medications + +--------+ +-------+------+------+ | Medication Order | MAR | Action | Dose | Rate | Site | | | Action | Date | | | | + +--------+ +-------+------+------+ | hydrOXYzine (ATARAX) tablet 25 | Given | 01/03/20 | 25 mg | | | | mg 25 mg, oral, ONCE, 1 dose, | | 20 11:59 | | | | | 01/04/20 at 0030 | | PM PDT | | | | + +--------+ +-------+------+------+ +---+---+ | | | +---+---+ documented in this encounter
--- OUTSIDE RECORDS SUMMARY | ~2020-02-03 | XMS | Encounter Summary ---
Demographics + + + | Address | [address] | | | [place] [address] | + + + | Home Phone [...] Team Providers + +------+ + | Care Accounting Clerks Supervisor Name | Role | Phone | + +------+ + | No Pcp Per Patient | PCP | Unavailable | + +------+ + Encounter Details +--------+--------+ + + + | Date | Type | Department | Care Team | Description | +--------+--------+ + + + | 12/24/ | Travel [...] in contact | No / Unsure | 12/25/2019 5:42 PM | | with someone who was confirmed or | | PDT | | suspected to have Coronavirus / COVID-19? | | | + + + + documented as of this encounter Plan of Treatment Not on filedocumented as of this encounter Visit Diagnoses Not on filedocumented in this encounter"
--- OUTSIDE RECORDS SUMMARY | ~2020-02-03 | XMS | Encounter Summary ---
Demographics + + + | Address | [address] | | | [place] [address] | + + + | Home Phone | | + + + | Preferred Language | Unknown | + + + | Marital Status | Single | + + + | Druze Affiliation | NRP | + + + [...] Team Providers + +------+ + | Care Manager Resource Name | Role | Phone | + [...] [address] | | | | | [place], [place] | [facility], | | | 01/03/ | | [address] | [place] [address] | | | 2019 | | | [phone] | | | | | | | [...] MD - 01/03/2020Consider mindfulness, try the garry [facility] DEPT.ce. Try breathing squares. Follow up with PCP for consideration of starting an SSRI medication. Cons ider psychiatry/psychology as well. AttachmentsThe following attachments cannot be sent through Care Everywhere.Panic Attacks ( French)documented in this encounter Plan of Treatment Not [...]
--- OUTSIDE RECORDS SUMMARY | ~2020-02-03 | XMS | Encounter Summary ---
Demographics + + + | Address | [address] | | | [place] [address] | + + + | Home Phone [...] Team Providers + +------+ + | Care Petroleum Refining Equipment Operator Name | Role | Phone | + +------+ + | No Pcp Per Patient | PCP | Unavailable | + +------+ + Encounter Details +--------+--------+ + + + | Date | Type | Department | Care Team | Description | +--------+--------+ + + + | 01/02/ | Travel [...]
--- OUTSIDE RECORDS SUMMARY | ~2020-02-03 | XMS | Encounter Summary ---
Demographics + + + | Address | [address] | | | [place] [address] | + + + | Home Phone | | + + + | Preferred Language | Unknown | + + + | Marital Status | Single | + + + | Spiritism Affiliation | NRP | + + + [...] Team Providers + +------+ + | Care Road Builder Name | Role | Phone | + [...]
--- OUTSIDE RECORDS SUMMARY | ~2020-02-03 | XMS | Encounter Summary ---
Demographics + + + | Address | [address] | | | [place] [address] | + + + | Home Phone | | + + + | Preferred Language | Unknown | + + + | Marital Status | Single | + + + | Cheondoism Affiliation | NRP | + + + [...] Team Providers + +------+ + | Care Music Orchestrator Name | Role | Phone | + [...]
--- OUTSIDE RECORDS SUMMARY | ~2020-02-03 | XMS | Encounter Summary ---
Demographics + + + | Address | [address] | | | [place] [address] | + + + | Home Phone [...] Team Providers + +------+ + | Care Casting Repairer Name | Role | Phone | + [...] [address] | | | | | [place], [place] | [address] [facility] | | | | | [id number] | Rd [place], [place] | | | | | | [address] | | | | | | [phone] | | | | | | | [...] be sent through Care Everywhere.Chest Pain ([facility])documented in this encounter Medications at Time [...] [facility] | [address] | [place], [place] | | | LAB | | [address] | | + + + + + [...] | | [facility] | | | [place] | | | | | + +-------+ [...] [facility] | [address] | [place], [place] | | | LAB | | [address] | | + + + + + [...] [facility] | [address] | [place], [place] | | | LAB | | [address] | | + + + + + [...] | Visit Count (12 mo.) Facility Visits [facility] | | | [place] 1 [facility] 6 Total 7 Note: Visits | | | indicate total known visits. Recent Emergency Department Visit | | | Summary Date Facility City State Type Diagnoses or Chief Complaint | | | Jan 18, 2020 [facility]. [place]. [place] Emergency 10,800. | | | anxiety Jan 17, 2020 [facility]. [place] Emergency | | | 10,800. anxiety Jan 09, 2020 [facility]. [place]. [place] | | | Emergency 10,800. recheck anxiety 18,400. Adjustment | | | disorder, unspecified 18,400. Anxiety disorder, unspecified | | | Jan 09, 2020 [facility]. [place]. [place] Emergency 10,800. | | | ANXIETY 18,400. Anxiety disorder, unspecified Jan 08, 2020 | | [facility]. [place] Emergency Anxiety | | | Panic Attack Panic disorder [episodic paroxysmal anxiety] | | | Jan 03, [address] [facility]. [place] Emergency 10,800. | | | anxiety, sob 18,400. Panic disorder [episodic paroxysmal | | | anxiety] Dec 25, [address] [facility]. [place] Emergency | | | 10,800. CP 18,400. Chest pain, unspecified | | | Recent Inpatient Visit Summary No recorded inpatient visits. | | | Care Team Provider Specialty Phone Fax Service Dates [place], | | | [facility] Clinic/Center: Feder[facility] Qualified | | | [facility] ([facility] Dec 24, 2019 - Current | | | [employer] Portal This patient has registered at the [facility] | | | [facility] Emergency Department For more information | | | visit: | | | [email or web address] | | | [id number] PLEASE NOTE: 1. Any care recommendations [...] or completeness of information provided. ? 2020 [employer] | | | [employer]. - www.[employer] | | + + + + + [...] | | Visit Count (12 mo.)Facility Visits [facility] 1 [facility] | | [facility] 6 Total 7 Note: Visits indicate total known visits. Recent Emergency | | Department Visit SummaryDate Facility City State Type Diagnoses or Chief Complaint Srini | | 2019 [facility] [place]. [place] Emergency 10,800. anxiety Jan 17, 2020 | | [facility] [place] Emergency 10,800. anxiety Jan 09, 2020 | | [facility]. [place]. [place] Emergency 10,800. recheck anxiety 18,400. Adjustment | | disorder, unspecified 18,400. Anxiety disorder, unspecified Jan 09, 2020 | | [facility] [place] [place] Emergency 10,800. ANXIETY 18,400. Anxiety disorder, | | unspecified Jan 08, 2020 [facility]. [place] Emergency Anxiety | | Panic Attack Panic disorder [episodic paroxysmal anxiety] Jan 03, 2020 | | [facility] [place] Emergency 10,800. anxiety, sob 18,400. Panic disorder | | [episodic paroxysmal anxiety] Dec 25, 2019 [facility]. [place]. [place] Emergency | | 10,800. CP 18,400. Chest pain, unspecified Recent Inpatient Visit SummaryNo recorded | | inpatient visits. Care TeamProvider Specialty Phone Fax Service Dates [place], | | [facility] Clinic/Center: [facility] ([facility]) | | Dec 24, 2019 - Current BlueWhale PortalThis patient has registered at | | the [facility] Emergency Department For more information visit: | | [email or web address] PLEASE | | NOTE: 1. Any care [...] completeness of information | | provided.? 2019 [employer] - www.[employer] | | | |Jan 09, [address] [facility]. [place] Emergency | | 10,800. recheck anxiety | | 18,400. Adjustment disorder, unspecified | | 18,400. Anxiety disorder, unspecified | | | |Jan 09, [address] [facility]. [place] Emergency | | 10,800. ANXIETY | | 18,400. Anxiety disorder, unspecified | | | |Jan 08, 2020 [facility]. [place] Emergency | | Anxiety | | Panic Attack | | Panic disorder [episodic paroxysmal anxiety] | | | |Jan 03, [address] [facility]. [place] Emergency | | 10,800. anxiety, sob | | 18,400. Panic disorder [episodic paroxysmal anxiety] | | | |Dec 25, [address] [facility]. [place] Emergency | | 10,800. CP | | 18,400. Chest pain, unspecified | | | | | | | |Recent Inpatient Visit Summary | |No recorded inpatient visits. | | | |Care Team | |Provider Specialty Phone Fax Service Dates | |[facility] Clinic/Center: [facility] ( [facility]) Dec 24, 2019 - Current | | | |[employer]ale Portal | |This patient has registered at the [facility] Emergency Department | |For more information visit: [email or web address] | |PLEASE NOTE: | | 1. Any [...] information provided. | | | |? 2019 [employer] - [employer] | + + + + + + + | Performing | Address | City/State/Zipcode | Phone Number | | Organization | | | | + + + + + | [employer] | [address] | [place], [place] | [phone] | | [employer] | [address] | [address] | | + + + + + [...]
--- OUTSIDE RECORDS SUMMARY | ~2020-02-03 | XMS | Encounter Summary ---
Demographics + + + | Address | [address] | | | [place] [address] | + + + | Home Phone | | + + + | Preferred Language | Unknown | + + + | Marital Status | Single | + + + | Samaritan Affiliation | NRP | + + + [...] Team Providers + +------+ + | Care Cider Maker Name | Role | Phone | + [...] + + | 12/24/ | Emergency | [facility] | Chema Beck, | | | 2019 | | Medicine [address] | DO [address] [facility] | | | | | [place], [place] | [facility] | | | | | [id number] | [place], [place] | | | | | | [address] | | | | | | [phone] | | | | | | | [...] + + + | Blood Pressure | 114/80 | 12/25/2019 7:26 PM | | | | | PDT | | + + + + + | Pulse | 76 | 12/25/2019 7:26 PM | | | | | PDT | | + + + + + | Temperature | 36.8 C (98.2 F) | 12/25/2019 5:16 PM | | | | | PDT | | + + + + + | Respiratory Rate | 25 | 12/25/2019 7:26 PM | | | | | PDT | | + + + + + | Oxygen Saturation | 97% | 12/25/2019 7:26 PM | | | | | PDT | | + + + + + | Inhaled Oxygen | - | - | | | Concentration | | | | + + + + + | Weight | - | - | | + + + + + | Height | - | - | | + + + + + | Body Mass Index | - | - | | + + + + + documented in this encounter Discharge Instructions Instructions Chema Beck DO - 12/25/2019Thank you for for coming to the Emergency De partment for your care today. Please use any medications given as directed. Please ask your nurse or Dr. Beck if you have questions about your care today. Please follow-up with your regular doctor (or the doctor you were referred to) as directed. Indications for more urgen t follow-up have been discussed, but you may return to the Emergency Department at ANY time with any new or concerning symptoms. AttachmentsThe following attachments cannot be sent through Care Everywhere.Chest Pain (Mone rosales)documented in this encounter Plan of Treatment Not [...] | + +--------+ + + + | CARYN AGUSTIN - [facility] | Urgent | 12/25/2019 | | Results for this | | ONLY | | 5:03 PM | | procedure are in the | | | | PDT | | results section. | + +--------+ + + + documented in this encounter Results X-RAY CHEST 2 VIEW (12/25/2019 6:18 PM [...] Note | + --------+ | Service Account, [employer] [place] In Interface - 12/25/2019 6:22 PM PDT [...] RADIOLOGY | [address] | [place], [place] | [phone] | | VOICE RECOGNITION | | [address] | | + + + + + CBC AND AUTO DIFF (12/25/2019 5:26 PM PDT) + +---------+ + + + | Component | Value | Ref Range | Performed | Pathologist | | | | | At | Signature | + +---------+ + + + | WHITE CELL | 7.00 | 3.50 - 10.80 | [facility] | | | COUNT | | K/cu mm | [facility] | | + +---------+ + + + | RED CELL | 5.18 | 4.50 - 6.00 | [facility] | | | COUNT | | M/cu mm | [facility] | | + +---------+ + + + | HEMOGLOBIN | 15.6 | 13.5 - 17.5 | [facility] | | | | | g/dL | [facility] | | + +---------+ + + + | HEMATOCRIT | 46.2 | 41.0 - 53.0 % | [facility] | | | | | | [facility] | | + +---------+ + + + | MCV | 89.2 | 80.0 - 100.0 fL | [facility] | | | | | | [facility] | | + +---------+ + + + | MCH | 30.2 | 27.0 - 34.0 pg | [facility] | | | | | | [facility] | | + +---------+ + + + | MCHC | 33.8 | 33.0 - 35.5 | [facility] | | | | | g/dL | [facility] | | + +---------+ + + + | RDW | 13.1 | 11.5 - 14.5 % | [facility] | | | | | | [facility] | | + +---------+ + + + | PLATELET | 296 | 150 - 400 K/cu | [facility] | | | COUNT | | mm | [facility] | | + +---------+ + + + | MPV | 7.1 (L) | 7.4 - 10.4 fL | [facility] | | | | | | [facility] | | + +---------+ + + + | NEUTROPHIL | 63.7 | 50.0 - 70.0 % | [facility] | | | % | | | [facility] | | + +---------+ + + + | LYMPHOCYTE | 21.8 | 18.0 - 42.0 % | [facility] | | | % | | | [facility] | | + +---------+ + + + | MONOCYTE % | 9.8 (H) | 3.5 - 9.0 % | [facility] | | | | | | [facility] | | + +---------+ + + + | EOS % | 4.0 (H) | 0.0 - 3.0 % | [facility] | | | | | | [facility] | | + +---------+ + + + | BASO % | 0.7 | 0.0 - 2.0 % | [facility] | | | | | | [facility] | | + +---------+ + + + | NEUTROPHIL | 4.40 | 1.80 - 7.70 | [facility] | | | # | | K/cu mm | [facility] | | + +---------+ + + + | LYMPHOCYTE | 1.50 | 1.00 - 4.80 | [facility] | | | # | | K/cu mm | [facility] | | + +---------+ + + + | MONOCYTE # | 0.70 | 0.10 - 0.90 | [facility] | | | | | K/cu mm | [facility] | | + +---------+ + + + | EOS # | 0.30 | 0.00 - 0.50 | [facility] | | | | | K/cu mm | [facility] | | + +---------+ + + + | BASO # | 0.00 | 0.00 - 0.10 | [facility] | | | | | K/cu mm | [facility] | | + +---------+ + + + + + | Specimen | + + | Blood - Blood | | (substance) | + + + + + + + | Performing | Address | City/State/Zipcode | Phone Number | | Organization | | | | + + + + + | [facility] | [address] | [place], [place] | | | LAB | | [address] | | + + + + + BASIC METABOLIC SET (NA, K, CL, TCO2, BUN, CR, GLU, CA) (12/25/2019 5:26 PM PDT) + +-------+ + + + | Component | Value | Ref Range | Performed | Pathologist | | | | | At | Signature | + +-------+ + + + | GLUCOSE, | 89 | 70 - 99 mg/dL | [facility] | | | PLASMA | | | [facility] | | | (LAB) | | | | | + +-------+ + + + | BUN, PLASMA | 16 | 6 - 20 mg/dL | [facility] | | | (LAB) | | | [facility] | | + +-------+ + + + | CREATININE | 0.99 | 0.60 - 1.30 | [facility] | | | PLASMA | | mg/dL | [facility] | | | (LAB) | | | | | + +-------+ + + + | EGFR | >60 | >60 mL/min | [facility] | | | - | | | [facility] | | | AUSTRIAN | | | | | + +-------+ + + + | EGFR NON | >60 | >60 mL/min | [facility] | | | -SOLITARIO | | | [facility] | | | RICAN | | | | | + +-------+ + + + | SODIUM, | 138 | 136 - 145 | [facility] | | | PLASMA | | mmol/L | [facility] | | | (LAB) | | | | | + +-------+ + + + | POTASSIUM, | 3.7 | 3.4 - 5.0 | [facility] | [...] + + + | TOTAL CO2, | 28 | 21 - 32 mmol/L | [facility] [...] + + + | ANION GAP | 5 | 4 - 11 mmol/L | [facility] | | | | | | [facility] | | + +-------+ + + + | BUN/CREATIN | 16 | 8 - 25 | [facility] | [...] Disease Education Program. Estimated GFR Interpretive | [facility] | | Information: <60 mL/min/1.73 sq m [...] | + + + + + | [facility] | [address] | [place], [place] | | | LAB | | [address] | | + + + + + TROPONIN I, PLASMA (12/25/2019 5:26 PM PDT) + +-------+ + + + | [...] and | | | clinical information. | [facility] | | | [facility] | + + + + + + + + | Performing | Address | City/State/Zipcode | Phone Number | | Organization | | | | + + + + + | [facility] | [address] | [place], [place] | | | LAB | | [address] | | + + + + + VAMSI, CARYN - [facility] ONLY (12/25/2019 5:03 PM PDT) + + + + + + | Component | Value | Ref Range | Performed | Pathologist | | | | | At | Signature | + + + + + + | EKG | Test Reason : OPENBlood | | [facility] - | | | DIAGNOSIS | Pressure : */* mmHGVent. | | CARDIOLOGY | | | | Rate : 082 BPM | | | | | | Atrial Rate : 081 BPM | | | | | | P-R Int : 000 ms | | | | | | QRS Dur : 087 ms | | | | | | QT Int : 372 ms | | | | | | P-R-T Axes : 023 | | | | | | 046 040 degrees QTc | | | | | | Int : 435 msSinus | | | | | | rhythmNormal | | | | | | ECGConfirmed by Colin, | | | | | | Zeb ([id number]) on | | | | | | 12/25/2019 8:19:55 | | | | | | PMReferred By: | | | | | | Finalized | | | | | | By:Zeb Shaw | | | | + + + [...] Primary | + + documented in this encounter"
--- OUTSIDE RECORDS SUMMARY | ~2020-02-03 | XMS | Encounter Summary ---
Demographics + + + | Address | [address] | | | [place] [address] | + + + | Home Phone | | + + + | Preferred Language | Unknown | + + + | Marital Status | Single | + + + | Taoism Affiliation | NRP | + + + [...] Team Providers + +------+ + | Care Superintendent Geophysical Laboratory Name | Role | Phone | + [...] [address] | MD Mariely [address] [facility] | | | | | [place], [place] | [facility] | | | | | [phone] | [place], [place] | | | | | | [address] | | | | | | [phone] | | | | | | | [...] Care Everywhere.Generalized Anx iety Disorder: General Info (Turkish)Panic Attacks (Turkish)documented in this encounter Medications at Time of [...] [facility]?NOTIFICATION?01/30/2020 16:51?JONH VAZQUEZ?MRN: | [facility] | | [id number] Criteria Met 5 Visits In 365 Days Security and | MEDICAL | | Safety No recent Security Events currently on file ED Care | TECHNOLOGIES | | Guidelines There are currently no ED Care Guidelines for this | | | patient. Please check your facility's medical records system. | | | E.D. Visit Count (12 mo.) Facility Visits [facility] | | | [facility] 1 [facility] 7 Total 8 | | | Note: Visits indicate total known visits. Recent Emergency | | | Department Visit Summary Date Facility City State Type Diagnoses or | | | Chief Complaint Jan 30, 2020 [facility]. [place] | | | Emergency 10,800. ANXIETY / PANIC ATTACK Jan 18, 2020 | | | [facility]. [place] Emergency 10,800. anxiety | | | 18,400. Chest pain, unspecified Jan 17, 2020 [facility]. | | | [place]. [place] Emergency 10,800. anxiety Jan 09, 2020[facility] | | | Community [facility]. [place]. [place] Emergency 10,800. recheck anxiety | | | 18,400. Adjustment disorder, unspecified 18,400. Anxiety | | | disorder, unspecified Jan 09, 2020 [facility]. [place]. [place] | | | Emergency 10,800. ANXIETY 18,400. Anxiety disorder, | | | unspecified Jan 08, 2020 [facility]. [place] | | | Emergency Anxiety Panic Attack Panic disorder | | | [episodic paroxysmal anxiety] Jan 03, 2020 [facility]. | | | [place]. [place] Emergency 10,800. anxiety, sob 18,400. Panic | | | disorder [episodic paroxysmal anxiety] Dec 25, 2019 [facility] | | | Community H. [place]. [place] Emergency 10,800. CP 18,400. Chest | | | pain, unspecified Recent Inpatient Visit Summary No | | | recorded inpatient visits. Care Team Provider Specialty Phone | | | Fax Service Dates [facility] | | | Clinic/Center: [facility] ([facility]) (001) | | | [phone] Dec 24, 2019 - Current Car in the Cloud Portal This | | | patient has registered at the [facility] Emergency | | | Department For more information visit: | | | [email or web address] | | | [id number] [email or web address] PLEASE NOTE: 1. Any care recommendations [...] or completeness of information provided. ? 2020 [employer] | | | [employer] - [email or web address] | | + + + [...] | system.E.D. Visit Count (12 mo.)Facility Visits [facility] 1 | | [facility] 7 Total 8 Note: Visits indicate total known visits. Recent | | Emergency Department Visit SummaryDate Facility City State Type Diagnoses or Chief | | Complaint Jan 30, 2020 [facility]. [place] Emergency 10,800. ANXIETY / | | PANIC ATTACK Jan 18, 2020 [facility]. [place] Emergency 10,800. anxiety | | 18,400. Chest pain, unspecified Jan 17, 2020 [facility]. [place] Emergency | | 10,800. anxiety Jan 09, 2020 [facility]. [place] Emergency 10,800. | | recheck anxiety 18,400. Adjustment disorder, unspecified 18,400. Anxiety disorder, | | unspecified Jan 09, 2020 [facility]. [place] Emergency 10,800. ANXIETY | | 18,400. Anxiety disorder, unspecified Jan 08, 2020 [facility]. | | [place] Emergency Anxiety Panic Attack Panic disorder [episodic paroxysmal anxiety] | | Jan 03, 2020 [facility]. [place] Emergency 10,800. anxiety, sob 18,400. | | Panic disorder [episodic paroxysmal anxiety] Dec 25, 2019 [facility]. | | [place] Emergency 10,800. CP 18,400. Chest pain, unspecified Recent Inpatient Visit | | SummaryNo recorded inpatient visits. Care TeamProvider Specialty Phone Fax Service Dates | | [facility] Clinic/Center: Pending Sale To [facility] | | Center ([facility]) Dec 24, 2019 - Current Car in the Cloud PortalThis patient has | | registered at the [facility] Emergency Department For more information | | visit: [email or web address] | | PLEASE NOTE: 1. Any care [...] completeness of information | | provided.? 2020 [employer] - [email or web address] | | | |Jan 17, 2020 [facility]. [place]. [place] Emergency | | 10,800. anxiety | | | |Jan 09, 2020 [facility]. [place]. [place] Emergency | | 10,800. recheck anxiety | | 18,400. Adjustment disorder, unspecified | | 18,400. Anxiety disorder, unspecified | | | |Jan 09, 2020 [facility]. [place]. [place] Emergency | | 10,800. ANXIETY | | 18,400. Anxiety disorder, unspecified | | | |Jan 08, 2020 [facility]. [place] Emergency | | Anxiety | | Panic Attack | | Panic disorder [episodic paroxysmal anxiety] | | | |Jan 03, 2020 [facility]. [place]. [place] Emergency | | 10,800. anxiety, sob | | 18,400. Panic disorder [episodic paroxysmal anxiety] | | | |Dec 25, 2019 [facility]. [place] Emergency | | 10,800. CP | | 18,400. Chest pain, unspecified | | | | | | | |Recent Inpatient Visit Summary | |No recorded inpatient visits. | | | |Care Team | |Provider Specialty Phone Fax Service Dates | |[facility] Clinic/Center: [facility] ( [facility]) Dec 24, 2019 - Current | | | |Collective Portal | |This patient has registered at the [facility] Emergency Department | |For more information visit: [email or web address] | |PLEASE NOTE: | | 1. Any [...] information provided. | | | |? 2020 Consulted. - [email or web address] | + + + + + + + | Performing | Address | City/State/Zipcode | Phone Number | | Organization | | | | + + + + + | [facility] | [address] | [place], [place] | [phone] | | TECHNOLOGIES | [address] | [address] | | + + + + + documented in this encounter Visit Diagnoses + + | Diagnosis | + + | Anxiety - Primary Anxiety state, unspecified | + + documented in this encounter
--- OUTSIDE RECORDS SUMMARY | ~2020-02-03 | XMS | Encounter Summary ---
Demographics + + + | Address | [address] | | | [place] [address] | + + + | Home Phone | | + + + | Preferred Language | Unknown | + + + | Marital Status | Single | + + + | Orthodoxy Affiliation | NRP | + + + [...] Team Providers + +------+ + | Care Battery Test Engineer Name | Role | Phone | + [...]
--- OUTSIDE RECORDS SUMMARY | ~2020-02-03 | XMS | Encounter Summary ---
Demographics + + + | Address | [address] | | | [place] [address] | + + + | Home Phone | | + + + | Preferred Language | Unknown | + + + | Marital Status | Single | + + + | Jain Affiliation | NRP | + + + [...] Team Providers + +------+ + | Care Petrol Tanker Driver Name | Role | Phone | + [...]
--- OUTSIDE RECORDS SUMMARY | ~2020-02-03 | XMS | Encounter Summary ---
Demographics + + + | Address | [address] | | | [place] [address] | + + + | Home Phone | | + + + | Preferred Language | Unknown | + + + | Marital Status | Single | + + + | Hoahaoism Affiliation | NRP | + + + [...] Team Providers + +------+ + | Care Gymnastics Coach Or Instructor Name | Role | Phone | + [...]
--- OUTSIDE RECORDS SUMMARY | ~2020-02-03 | XMS | Encounter Summary ---
Demographics + + + | Address | [address] | | | [place] [address] | + + + | Home Phone [...] Team Providers + +------+ + | Care Editing Intern Name | Role | Phone | + [...]
--- OUTSIDE RECORDS SUMMARY | ~2020-02-03 | XMS | Encounter Summary ---
Demographics + + + | Address | [address] | | | [place] [address] | + + + | Home Phone [...] Team Providers + +------+ + | Care Prestidigitator Name | Role | Phone | + [...] Medicine [address] | DO [address] [facility] | | | | | [place], [place] | [facility] | | | | | [phone] | [place], [place] | | | | | | [address] | | | | | | [phone] | | | | | | | [...] Note | + --------+ | Service Account, [employer] In Interface - 12/25/2019 6:22 PM PDT [...] RADIOLOGY | [address] | [place], [place] | [phone] | | VOICE RECOGNITION | | [address] | | + + + + + [...] [facility] | [address] | [place], [place] | | | LAB | | [address] | | + + + + + [...] | | [facility] | | | [place] | | | | | + +-------+ [...] [facility] | [address] | [place], [place] | | | LAB | | [address] | | + + + + + [...] [facility] | [address] | [place], [place] | | | LAB | | [address] | | + + + + + [...]
[~2020-02-03 10:01] MED LIST: HYDRALAZINE HCL50 MG PO
--- OUTSIDE RECORDS SUMMARY | 2020-02-03 10:04 | XMS ---
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 - 3 Facilities in [address] [facility] - 2 Visits in 30 Days CARE PROVIDERS MATT HOLLIS [facility]/Center: Federally Qualified 12/24/2019-[facility] ([facility]) PHONE: [phone] Rogelio has no Care Guidelines for this patient. Geremias VISIT COUNT (12 MO.) 1 [facility] [address] [place] [address]. Anthony Karely TOTAL 10 NOTE: Visits indicate total known visits. ED/UCC VISIT TRACKING (12 MO.) 02/03/2020 10:01 [facility] [place] TYPE: Emergency COMPLAINT: - RAPID HEART RATE 01/31/2020 22:23 [facility] [place] TYPE: Emergency COMPLAINT: - CHEST TINGLING [facility]2020 [facility] [place] [facility] DIAGNOSES: 45159. ANXIETY / PANIC ATTACK 00357. Anxiety disorder, unspecified 01/18/2020 10:22 [facility] [place] TYPE: Emergency DIAGNOSES: 20089. anxiety 30501. Chest pain, unspecified 01/17/2020 01:03 [facility] [place] TYPE: Emergency DIAGNOSES: 18484. anxiety 01/09/2020 23:05 [facility] [place] TYPE: Emergency DIAGNOSES: 64616. ermiaseck anxiety 40964. Adjustment disorder, unspecified 58366. Anxiety disorder, unspecified 01/09/2020 01:49 [facility] [place] TYPE: Emergency DIAGNOSES: 66498. ANXIETY 41827. Anxiety disorder, unspecified 01/08/2020 12:23 [facility] JOLYNN [place] TYPE: Emergency DIAGNOSES: - Panic disorder [episodic paroxysmal anxiety] - Anxiety - Panic Attack 01/03/2020 23:12 [facility] TYPE: Emergency DIAGNOSES: 00708. damir ware 31606. Panic disorder [episodic paroxysmal anxiety] 12/25/2019 17:10 [facility] TYPE: Emergency DIAGNOSES: 87601. MARGIE 04580. Chest pain, unspecified INPATIENT VISIT TRACKING (12 MO.) No inpatient visits to display in this time frame [id number]
[2020-02-03] MEDS ORDERED: PROZAC10 MG PO (10:33)
[2020-02-03] MEDS ORDERED: PROZAC20 MG PO (10:33)
--- NOTE | 2020-02-03 14:14 | EKG ---
[facility] [address] [facility] [place], [place] [address] Signed Sinus bradycardia Otherwise normal ECG When compared with ECG of 31-JAN-2020 22:31, No significant change was found Confirmed by DIANDRA RODRIGUEZ DO ([id number]) on 02/03/2020 2:14:41 PM Electronically Signed By: DIANDRA RODRIGUEZ DO 02/03/20 1414 PATIENT NAME: JONH YOO Electrocardiogram DATE OF : 88 PHYSICIAN: DIANDRA RODRIGUEZ DO REPORT #: [id number] REPORT IS CONFIDENTIAL AND NOT TO BE RELEASED WITHOUT AUTHORIZATION
== END 2020-02-03 10:48 | disposition home or self-care (01) ==
LOC: ED 10:01
DX: F41.9 Anxiety disorder, unspecified (principal); F17.200 Nicotine dependence, unspecified, uncomplicated
CPT/HCPCS: 93005; 93010; 99283-25